=== PATIENT | male | born 1925 | race Two or more races ===

== ENCOUNTER 2016-08-06 03:08 | Inpatient (IN) | payer MEDICARE, BC ==
[2016-08-06] VITALS (8 sets, daily range): BP systolic 76–115; BP diastolic 48–62
[~2016-08-06] VITALS: Ht 177.8 cm; Wt 68.0 kg
--- NOTE | 2016-08-06 03:34 | Emergency Room Report ---
History of Present Illness General Chief Complaint: General Complaint Source: Patient, Medical Record, EMS Present Illness HPI Is an 89-year-old male with a history of arrhythmia, status post AICD placement in June at [facility]. He was done because he had a syncopal episode. He is very hard of hearing and is a poor historian. Patient presents with AICD firing the last 2 days. Had one episode yesterday and 4 times tonight. He's been complaining of feeling flushed and hot. Denies any fever chills denies any chest pain. [place] like electrical shocks in his left chest. Denies any other complaint. No fever or chills but no nausea no vomiting. No symptoms right now. Allergies: Coded Allergies: No Known Allergies (Unverified , 08/06/16) Patient History Past Medical History: see triage record, old chart reviewed, HTN, arrhyth Past Surgical History: pacemaker, other Pertinent Family History: none Social History: Denies: smoking Immunizations: other Reviewed Nursing Documentation: PMH: Agreed, PSxH: Agreed Nursing Documentation-PMH Hx Hypertension: Yes Hx Pacemaker: Yes Hx Cancer: Yes Review of Systems Eye: Denies: blurred vision, eye pain ENT: Denies: ear pain, nose congestion, throat swelling Respiratory: Denies: cough, shortness of breath Cardiovascular: Denies: chest pain, palpitations Gastrointestinal: Denies: abdominal pain, diarrhea, nausea, vomiting Musculoskeletal: Denies: back pain, joint pain Skin: Denies: rash Neurological: Denies: headache, numbness Endocrine: Denies: increased thirst, increased urine Hematologic/Lymphatic: Denies: easy bruising All Other Systems: negative except mentioned in HPI Physical Exam Vital Signs Date Time Temp Pulse Resp B/P Pulse Ox O2 Delivery O2 Flow Rate FiO2 08/06/16 03:17 97.2 80 15 99/63 100 Room Air vitals unremarkable Sp02 EP Interpretation: reviewed, normal General Appearance: well appearing, no apparent distress, alert Head: normocephalic, atraumatic Eyes: bilateral eye EOMI, bilateral eye PERRL ENT: hearing grossly normal, normal pharynx Neck: full range of motion, supple, no meningismus Respiratory: chest non-tender, lungs clear, normal breath sounds Cardiovascular #1: regular rate, rhythm, no murmur Gastrointestinal: normal bowel sounds, non tender, no mass, no organomegaly, no bruit, non-distended Musculoskeletal: back normal, gait/station normal, normal range of motion Psychiatric: mood/affect normal Skin: warm/dry Medical Decision Making Diagnostic Impression: Primary Impression: AICD discharge Additional Impressions: NSTEMI, initial episode of care Arrhythmia Qualified Codes: I49.9 - Cardiac arrhythmia, unspecified Elevated brain natriuretic peptide (BNP) level Thrombocytopenia Chronic kidney disease (CKD) Qualified Codes: 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 He probably has V. fib/V. tach. AICD is working. No evidence of malfunction or wire fracture. No evidence of PE, dissection, pneumonia to name a few. Is elevated troponin may be secondary to cardiac damage secondary to AICD firing. Could also be secondary to cardiac event. He did say that his baseline creatinine is around 5. he has no evidence of fluid overloaded on chest x-ray or clinical exam. Patient will be admission versus transfer for interrogation. Laboratory Tests Test 08/06/16 03:20 White Blood Count 6.0 K/UL (4.8-10.8) Red Blood Count 4.13 M/UL (4.70-6.10) L Hemoglobin 13.4 G/DL (14.2-18.0) L Hematocrit 41.7 % (42.0-52.0) L Mean Corpuscular Volume 101 FL (80-99) H Mean Corpuscular Hemoglobin 32.5 PG (27.0-31.0) H Mean Corpuscular Hemoglobin Concent 32.2 G/DL (32.0-36.0) Red Cell Distribution Width 14.2 % (11.6-14.8) Platelet Count 108 K/UL (150-450) L Mean Platelet Volume 7.1 FL (6.5-10.1) Neutrophils (%) (Auto) 66.9 % (45.0-75.0) Lymphocytes (%) (Auto) 22.9 % (20.0-45.0) Monocytes (%) (Auto) 9.3 % (1.0-10.0) Eosinophils (%) (Auto) 0.2 % (0.0-3.0) Basophils (%) (Auto) 0.7 % (0.0-2.0) Prothrombin Time 11.1 SEC (9.30-11.50) Prothromb Time International Ratio 1.1 (0.9-1.1) Activated Partial Thromboplast Time 23 SEC (23-33) Sodium Level 138 mEQ/L (135-145) Potassium Level 3.5 mEQ/L (3.4-4.9) Chloride Level 91 mEQ/L (98-107) L Carbon Dioxide Level 31 mEQ/L (20-30) H Anion Gap 16 (5-15) H Blood Urea Nitrogen 70 mg/dL (7-23) H Creatinine 4.7 mg/dL (0.7-1.2) H Estimat Glomerular Filtration Rate mL/min (>60) Glucose Level 99 mg/dL (74-106) Calcium Level 9.9 mg/dL (8.6-10.2) Total Bilirubin 0.6 mg/dL (0.0-1.2) Aspartate Amino Transf (AST/SGOT) 184 U/L (5-40) H Alanine Aminotransferase (ALT/SGPT) 110 U/L (3-41) H Alkaline Phosphatase 49 U/L (40-129) Total Creatine Kinase 276 U/L (38-174) H Creatine Kinase MB 5.5 ng/mL (< 6.7) Creatine Kinase MB Relative Index 1.9 Troponin I 0.33 ng/mL (<=0.30) *H Pro-B-Type Natriuretic Peptide 28904 pg/mL (0-450) H Total Protein 5.8 g/dL (6.6-8.7) L Albumin 3.3 g/dL (3.5-5.2) L Globulin 2.5 g/dL Albumin/Globulin Ratio 1.3 (1.0-2.7) Lab Results Impression labs with elevated troponin, BNP EKG Diagnostic Results Rate: normal Rhythm: NSR, other - Paced ST Segments: no acute changes Rhythm Strip Diag. Results EP Interpretation: yes Rate: 80 Rhythm: NSR, no PVC's, no ectopy Chest X-Ray Diagnostic Results EP Interpretation: Yes Findings: no consolidation, no effusion, no pneumothorax, no acute cardiopulmonary disease, other - Cardiomegaly Number of Views: 1 Last Vital Signs Date Time Temp Pulse Resp B/P Pulse Ox O2 Delivery O2 Flow Rate FiO2 08/06/16 03:17 97.2 80 15 99/63 100 Room Air Status: improved Disposition: ADMITTED INPATIENT Condition: Serious VIRGINIA GILMORE M.D. Aug 06, 2016 03:34
[2016-08-06] MEDS ORDERED: VITAMIN B COMP1 EAC2 ORAL (03:37)
[2016-08-06] MEDS ORDERED: CALCIUM 1,0001 EAC1 PO (03:37)
[2016-08-06] MEDS ORDERED: TRIGLIDE160 MG PO (03:37)
[2016-08-06] MEDS ORDERED: ZETIA10 MG ORAL (03:37)
[2016-08-06] MEDS ORDERED: PACERONE200 MG ORAL (03:37)
[2016-08-06] MEDS ORDERED: ASPIRIN81 MG ORAL (03:37)
[2016-08-06] MEDS ORDERED: CALCITRIOL0.25 MCG PO (03:37)
[2016-08-06] MEDS ORDERED: CRESTOR40 MG ORAL (03:37)
[2016-08-06] MEDS ORDERED: POTASSIUM CHLO20 ME2 ORAL (03:37)
[2016-08-06] MEDS ORDERED: FLONASE ALLERG9.9 ML NS (03:37)
[2016-08-06] MEDS ORDERED: FUROSEMIDE40 MG ORAL (03:37)
[2016-08-06] MEDS ORDERED: METOLAZONE2.5 MG PO (03:37)
[2016-08-06 03:48] LABS: BASOPHILS % (AUTO) 0.7 % (0.0-2.0); EOSINOPHILS % (AUTO) 0.2 % (0.0-3.0); LYMPHOCYTES % (AUTO) 22.9 % (20.0-45.0); MEAN CORPUSCULAR HEMOGLOBIN 32.5 PG (27.0-31.0); MEAN CORPUSCULAR HGB CONC 32.2 G/DL (32.0-36.0); MEAN CORPUSCULAR VOLUME 101 FL (80-99); MEAN PLATELET VOLUME 7.1 FL (6.5-10.1); MONOCYTES % (AUTO) 9.3 % (1.0-10.0); NEUTROPHILS % (AUTO) 66.9 % (45.0-75.0); PLATELET COUNT 108 K/UL (150-450); RED BLOOD COUNT 4.13 M/UL (4.70-6.10); RED CELL DISTRIBUTION WIDTH 14.2 % (11.6-14.8)
[2016-08-06 04:01] LABS: INR 1.1 (0.9-1.1); PROTHROMBIN TIME 11.1 SEC (9.30-11.50)
[2016-08-06 04:06] LABS: ALANINE AMINOTRANSFERASE 110 U/L (3-41); ALBUMIN/GLOBULIN RATIO 1.3 (1.0-2.7); ANION GAP 16 (5-15); ASPARTATE AMINO TRANSFERASE 184 U/L (5-40); CALCIUM 9.9 mg/dL (8.6-10.2); CARBON DIOXIDE 31 mEQ/L (20-30); CHLORIDE 91 mEQ/L (98-107); CREATININE 4.7 mg/dL (0.7-1.2); HEMOLYSIS 11; POTASSIUM 3.5 mEQ/L (3.4-4.9); SODIUM 138 mEQ/L (135-145); TOTAL PROTEIN 5.8 g/dL (6.6-8.7)
[2016-08-06 04:19] LABS: CKMB 5.5 ng/mL (< 6.7)
[2016-08-06 04:26] LABS: TROPONIN I 0.33 ng/mL (<=0.30)
[2016-08-06] MEDS ORDERED: Aspirin Baby 81mg ORAL ONE (06:15)
[2016-08-06] MEDS ORDERED: Enoxaparin 80mg Inj SUBQ ONE (06:15)
[2016-08-06] MEDS ORDERED: Calcitriol 0.25mcg Cap ORAL ONE (11:00)
[2016-08-06] MEDS ORDERED: METOLAZONE 2.5 MG ORAL SCH (11:00)
[2016-08-06] MEDS ORDERED: Furosemide 40mg tab ORAL SCH (11:00)
--- NOTE | 2016-08-06 11:07 | Diagnostic Imaging Report ---
Indication: Chest Pain Comparison: None A single view chest radiograph was obtained. Findings: No definite infiltrate or pulmonary vascular congestion identified. Sternotomy and pacemaker are noted. The heart is enlarged. The aorta is mildly enlarged consistent with atherosclerotic vascular disease. The bones are osteopenic. Impression: No acute disease
[2016-08-06] MEDS: Aspirin EC 81mg tab ORAL SCH (12:11)
[2016-08-06] MEDS: Atorvastatin 80mg tab ORAL SCH (12:13)
[2016-08-06] MEDS: Heparin 5000 units/ml inj SUBQ SCH ×2 (12:14→21:00)
[2016-08-06] MEDS: Amiodarone 200mg tab ORAL SCH ×2 (13:35→21:06)
[2016-08-06] MEDS: Calcium Carbonate 500mg w/Vit D 200iu tab ORAL SCH (13:36)
[2016-08-06] MEDS: Flonase Nasal Inhaler 16gm NASAL SCH (13:36)
--- NOTE | 2016-08-06 20:58 | History and Physical Report ---
DATE OF ADMISSION: 08/06/2016 REASON FOR ADMISSION: Defibrillator firing off and elevated troponin. HISTORY OF PRESENT ILLNESS: The patient is an 89-year-old male with history of dysrhythmia and history of AICD placement in June. The patient had a syncopal episode. The patient is a poor historian. Apparently, his AICD has been fired off over the past two days. The patient notes that it was fired off approximately four times last night. The patient is feeling unwell. He denies any fevers of chills. Denies any falls. Denies any head trauma. He has noted the shock like feeling in left chest. The patient was brought in for evaluation. In the emergency room, the patient was noted to have an elevated troponin and now be admitted for further care and management and further intervention. PAST MEDICAL HISTORY: Notable for dysrhythmia, AICD, chronic kidney disease, hypercholesterolemia, possible coronary artery disease, and possible congestive heart failure. MEDICATIONS: Reviewed. ALLERGIES: Reviewed. SOCIAL HISTORY: The patient is currently nonsmoker and nondrinker. The patient is retired and unemployed and lives independently. FAMILY HISTORY: Otherwise noncontributory. REVIEW OF SYSTEMS: All 10 points reviewed. Otherwise negative with the exception of the above. PHYSICAL EXAMINATION: GENERAL: The patient is a well-developed male, comfortable of advanced age. VITAL SIGNS: Temperature 97.5 degrees, pulse 80, respiratory rate 14, blood pressure 96/49, and saturation 99% on room air. HEENT: Fairly negative. Extraocular movements are grossly intact. Oropharynx is moist. NECK: Supple. No jugular venous distention. LUNGS: Fairly clear. Symmetric. CARDIAC: Normal S1 and S2. Fairly regular. Noted murmur, which is soft. No rubs or gallops. AICD noted in the chest wall. ABDOMEN: Soft and nontender. No hepatosplenomegaly. EXTREMITIES: No cyanosis or clubbing. No edema. NEUROLOGIC: Grossly nonfocal. Hard of hearing. Slightly confused. LABORATORY AND DIAGNOSTIC DATA: White count 6, hematocrit 41.7, and platelets 108,000. Chemistry, BUN 70 and creatinine 4.7. Liver enzymes are elevated. BNP 45753. Troponin 0.33. IMPRESSION: 1. Automatic implantable cardioverter-defibrillator with firing possible ventricular dysrhythmia. 2. Evidence of chronic renal failure. 3. Evidence of transaminitis of unclear etiology possibly due to statin use. 4. Elevated natriuretic peptide . 5. Elevated troponin possible non-ST elevation myocardial infarction 6. Elevated hypocholesterolemia possible coronary artery disease. 7. Evidence of mild protein-calorie malnutrition . 8. Advanced age. 9. Reduced hearing. RECOMMENDATIONS: Supportive care. Resume home medications. Serial troponins. Folow up EGD. Cardiology evaluation to follow. Monitor on telemetry and consider electrophysiological evaluation. The patient apparently with chronic renal impairment, which is near baseline at present. We will discharge the patient when stable and likely provide home health. Rowdy Royal M.D. DR: Camacho JOB#: [id number] CC: BRITTANI
[2016-08-06 21:27] LABS: TROPONIN I 0.36 ng/mL (<=0.30)
[2016-08-07] VITALS (40 sets, daily range): BP systolic 58–121; BP diastolic 21–65
[2016-08-07 01:16] LABS: TROPONIN I 0.39 ng/mL (<=0.30)
--- NOTE | 2016-08-07 01:58 | Consultation ---
DATE OF CONSULTATION: 08/06/2016 REQUESTING PHYSICIAN: Rowdy Royal M.D. REASON FOR CONSULTATION: Defibrillator discharge. HISTORY OF PRESENT ILLNESS: This is an 89-year-old male with an ischemic cardiomyopathy and [employer] cardiac defibrillator suffered a syncopal episode, which was associated with several shocks from his defibrillator, he states 4 times. He had another episode the night before last as well, but no prior episodes. The defibrillator was implanted in June 2015. The patient has not had any chest pain. He denies any other symptoms. His troponin level in the emergency room was 0.33. PAST MEDICAL HISTORY: 1. Hyperlipidemia. 2. Coronary artery disease. 3. Congestive heart failure. 4. Cardiomyopathy. 5. Paroxysmal ventricular arrhythmias. 6. Chronic kidney disease. MEDICATIONS: Reviewed. ALLERGIES: None. SOCIAL HISTORY: Negative for smoking or alcohol use. REVIEW OF SYSTEMS: No fevers. No cough. No history of blood clotting. No history of diabetes or thyroid disorder. No history of seizures or strokes. PHYSICAL EXAMINATION: GENERAL: Elderly male appears in his age, in no acute distress. VITAL SIGNS: Afebrile, blood pressure 76/54, respiratory rate 81, and respiratory rate 15. HEENT: Temporal wasting. Pale conjunctivae. Oropharynx clear. NECK: Supple. LUNGS: Clear. CARDIAC: Regular rhythm and rate. Normal S1, paradoxically split S2, 1/6 systolic apical murmur. ABDOMEN: Soft. EXTREMITIES: No edema. ICD pocket site clean and dry. LABORATORY AND DIAGNOSTIC STUDIES: EKG reveals a paced rhythm. White count 6 and hemoglobin 13.4. BUN ___, creatinine 4.7, sodium 138, potassium 3.5, chloride 91, and bicarbonate 31. CK-MB is negative. Pro-natriuretic peptide 22,000. IMPRESSION: 1. Cardiac defibrillator discharge, possible malignant arrhythmia versus inappropriate discharge. 2. Dilated cardiomyopathy. 3. Acute on chronic kidney injury. 4. Hypotension, likely chronic, but exacerbated at this time due to hypovolemia and prerenal state. 5. Acute myocardial ischemia and possible infarction, likely due to defibrillator discharge. PLAN: 1. Cardiac monitoring. 2. Volume support by IV route. 3. parameters for anti-failure regimen. 4. Defibrillator interrogation is being arranged. I have contacted the [facility] [facility] provider service representative. 5. Serial troponin levels. Antiplatelet therapy. 6. Hold diuretic. 7. Continue amiodarone for antiarrhythmic benefits. 8. The patient's primary customer success director is will be contacted tomorrow to expand database. Roger Interiano M.D. DR: RONALD JOB#: [id number] CC:
[2016-08-07] MEDS ORDERED: Amiodarone 150mg/ml 3ml Amp ONE (03:59)
[2016-08-07] MEDS ORDERED: Amiodarone 900 MG in D5W 500ml 482 ML IV SCH (06:00)
[2016-08-07 06:22] LABS: MEAN CORPUSCULAR HEMOGLOBIN 32.2 PG (27.0-31.0); MEAN CORPUSCULAR HGB CONC 31.9 G/DL (32.0-36.0); MEAN CORPUSCULAR VOLUME 101 FL (80-99); MEAN PLATELET VOLUME 7.6 FL (6.5-10.1); PLATELET COUNT 93 K/UL (150-450); RED BLOOD COUNT 3.71 M/UL (4.70-6.10); RED CELL DISTRIBUTION WIDTH 14.2 % (11.6-14.8); WHITE BLOOD COUNT 5.7 K/UL (4.8-10.8)
[2016-08-07] MEDS: Amiodarone 900 MG in D5W 500ml 482 ML IV SCH (06:30)
[2016-08-07 07:03] LABS: CKMB 5.5 ng/mL (< 6.7)
[2016-08-07 07:06] LABS: ALANINE AMINOTRANSFERASE 93 U/L (3-41); ALBUMIN/GLOBULIN RATIO 1.3 (1.0-2.7); ANION GAP 17 (5-15); ASPARTATE AMINO TRANSFERASE 145 U/L (5-40); CALCIUM 9.4 mg/dL (8.6-10.2); CARBON DIOXIDE 29 mEQ/L (20-30); CHLORIDE 95 mEQ/L (98-107); HEMOLYSIS 10; POTASSIUM 3.7 mEQ/L (3.4-4.9); SODIUM 141 mEQ/L (135-145); TOTAL PROTEIN 5.3 g/dL (6.6-8.7)
[2016-08-07 07:30] LABS: MAGNESIUM 1.6 mg/dL (1.7-2.5); PHOSPHORUS 3.5 mg/dL (2.5-4.8)
[2016-08-07 07:32] LABS: TROPONIN I 0.33 ng/mL (<=0.30)
--- NOTE | 2016-08-07 08:15 | Critical Care Progress Note ---
Assessment/Plan Assessment/Plan IMPRESSION: 1. Automatic implantable cardioverter-defibrillator with firing possible ventricular dysrhythmia. 2. Evidence of acute on chronic renal failure. 3. Evidence of transaminitis of unclear etiology possibly due to statin use. 4. Elevated natriuretic peptide . 5. Elevated troponin possible non-ST elevation myocardial infarction 6. Elevated hypocholesterolemia possible coronary artery disease. 7. Evidence of mild protein-calorie malnutrition . 8. Advanced age. 9. Reduced hearing. PLAN await evaluation of AICD monitor in ICU on amio renal evaluation monitor function ? iv hydration follow up CMP and liver enzymes impression, plan, and exam edited and reviewed in detail care discussed with physical therapy manager - Subjective Interval Events: transferred to ICU for VT d/w cards appreciate care Condition: critical I&O: Intake and Output 08/06/16 08/07/16 19:00 07:00 Intake Total 33.33 ml Output Total 200 ml 450 ml Balance -200 ml -416.67 ml Intake IV Total 33.33 ml Output Urine Total 200 ml 450 ml # Voids 1 3 Critical Care - Objective Last 24 Hour Vital Signs Date Time Temp Pulse Resp B/P Pulse Ox O2 Delivery O2 Flow Rate FiO2 08/07/16 07:00 114 15 80/57 100 Room Air 08/07/16 06:00 103 15 93/39 100 Room Air 08/07/16 05:00 108 15 93/50 100 Room Air 08/07/16 04:00 111 16 121/27 99 Room Air 08/07/16 03:08 80 08/07/16 03:00 97.9 81 16 116/53 100 Room Air 08/07/16 02:30 77/49 08/07/16 02:00 75/48 08/07/16 01:30 76/44 08/07/16 01:00 78/48 08/07/16 00:30 76/50 08/07/16 00:00 96.4 82 18 77/49 98 Nasal Cannula 2.0 08/06/16 20:00 89 08/06/16 17:42 80 18 89/60 99 Room Air 08/06/16 16:24 98.0 98 18 115/62 100 Nasal Cannula 2.0 08/06/16 16:11 98.0 98 18 115/62 100 Nasal Cannula 2.0 08/06/16 15:15 98.0 81 15 76/54 100 Nasal Cannula 1.0 08/06/16 13:00 80 13 90/48 97 Room Air 08/06/16 10:30 82 15 91/48 97 Room Air Labs: GENERAL: The patient is a well-developed male, comfortable of advanced age. HEENT: Fairly negative. Extraocular movements are grossly intact. Oropharynx is moist. NECK: Supple. No jugular venous distention. LUNGS: Fairly clear. Symmetric. CARDIAC: Normal S1 and S2. Fairly regular. Noted murmur, which is soft. No rubs or gallops. AICD noted in the chest wall. ABDOMEN: Soft and nontender. No hepatosplenomegaly. EXTREMITIES: No cyanosis or clubbing. No edema. NEUROLOGIC: Grossly nonfocal. Hard of hearing. Slightly confused. JUSTUS TANG Aug 07, 2016 08:15
[2016-08-07] MEDS: Atorvastatin 80mg tab ORAL SCH (09:47)
[2016-08-07] MEDS: Aspirin EC 81mg tab ORAL SCH (09:47)
[2016-08-07] MEDS: Calcium Carbonate 500mg w/Vit D 200iu tab ORAL SCH (09:47)
[2016-08-07] MEDS: Heparin 5000 units/ml inj SUBQ SCH ×2 (09:51→21:14)
[2016-08-07 10:12] LABS: ANISOCYTOSIS 1+; BAND NEUTROPHILS % (MANUAL) 0 % (0-8); BASOPHILS % (MANUAL) 0 % (0-2); EOSINOPHILS % (MANUAL) 0 % (0-3); HYPOCHROMASIA 1+; LYMPHOCYTES % (MANUAL) 18 % (20-45); MACROCYTES 1+; NEUTROPHILS % (MANUAL) 74 % (45-75); PLATELET ESTIMATE DECREASED; PLATELET MORPHOLOGY NORMAL; TOTAL CELLS COUNTED 100
--- NOTE | 2016-08-07 11:46 | Wound Care Consultation ---
Wound Assessment Wound Assessment #1: Wound Number: #1 Wound Present on Admission: Yes New Wound: No Status Change of Wound: No Wound Location Body Site Modif: mid Wound Location Body Site: sacral Wound Type: pressure ulcer Tiffanie Test: Does not Tiffanie Pressure Ulcer Stage: deep tissue injury Wound Thickness: Full Thickness Wound Length: 2.0 Wound Width: 2.0 Wound Depth: utd Percent of Wound Purple/Maroon: 100 Wound Drainage Amount: None Wound Drainage Odor: None/Absent Tissue Surrounding Wound: Erythemic Wound General Appearance: Reddened - intact,maroon Wound Assessment #2: Wound Number: #2 Wound Present on Admission: Yes New Wound: No Status Change of Wound: No Wound Location Body Site Modif: left, upper Wound Location Body Site: arm Wound Type: other - scattered ruptured ecchymosis. Tiffanie Test: Does not Tiffanie Wound Thickness: Partial Thickness Percent of Wound [place]ese/Red: 50 Percent of Wound Purple/Maroon: 50 Wound Drainage Description: Serosanguineous Wound Drainage Amount: Scant Wound Drainage Odor: None/Absent Tissue Surrounding Wound: Erythemic Wound General Appearance: Reddened Wound Assessment #3: Wound Number: #3 Wound Present on Admission: Yes New Wound: No Status Change of Wound: No Wound Location Body Site Modif: right, upper Wound Location Body Site: arm Wound Type: other - scattered dark maroon ecchymosis Tiffanie Test: Does not Tiffanie Percent of Wound Purple/Maroon: 100 Wound Drainage Amount: None Wound Drainage Odor: None/Absent Tissue Surrounding Wound: Intact Wound General Appearance: Reddened Wound Assessment #4: Wound Number: #4 Wound Present on Admission: Yes New Wound: No Status Change of Wound: No Wound Location Body Site: leg - right and left lower legs Wound Type: scab - scattered scabs, dry scaly skin Tiffanie Test: Does not Tiffanie Wound Drainage Amount: None Wound Drainage Odor: None/Absent Tissue Surrounding Wound: Intact Wound General Appearance: Open to air, Clean/Dry Wound Comment #1 Mid Sacral pressure ulcer Deep Tissue injury. #2 Left upper extremity scattered ruptured ecchymosis and intact ecchymosis. #3 Right upper extremity scattered ecchymosis. #4 Left and Right lower extremities scattered dry scabs and dry skin. Recommendation -Apply low air loss mattress. -Local wound care as ordered. -Optimize nutrition. -Keep clean and dry. -Turn and reposition. -Offload affected sacral. -Offload heels and feet. -Assess and notify MD for any changes of condition. JOLLY NAZARIO Aug 07, 2016 11:46
[2016-08-07] MEDS: Flonase Nasal Inhaler 16gm NASAL SCH (14:36)
--- NOTE | 2016-08-07 15:27 | Consultation ---
Consult Note Consult Note asked to evaluate at the request of Dr Cruz for renal failure- Is an 89-year-old male with a history of arrhythmia, status post AICD placement in June at [facility]. He was done because he had a syncopal episode. He is very hard of hearing and is a poor historian. Patient presents with AICD firing the last 2 days. Had one episode yesterday and 4 times tonight. He's been complaining of feeling flushed and hot. Denies any fever chills denies any chest pain. [place] like electrical shocks in his left chest. Denies any other complaint. No fever or chills but no nausea no vomiting. No symptoms right now. Patient hard hearing- poor historian- examined- data reviewed . Assessment/Plan Renal Imp: Has h/o CKD - presents with Cr 4.7 now up to 5 Etiologies , multifactoria, mainly: Heart disease and cardiomyopathy leading to low renal perfusion and OR related to drugs: Lasix , Zaroxyllin, Reason for admit: Cardiac disease, Malignant arrhythmia leading to defibrillator discharge Dilated cardiomyopathy Hypotension Acute cardiac ischemia due to defibrillator discharge, with abnormal Troponin I Plan: Urinalysis- Gastric support- Kidney JOSE and Echo monitor renal parameters- TETE CABRERA Aug 07, 2016 15:27
[2016-08-07 17:41] LABS: TROPONIN I < 0.30 ng/mL (<=0.30)
[2016-08-07 20:53] LABS: APPEARANCE,URINE CLEAR; KETONES,URINE NEGATIVE (NEGATIVE); LEUKOCYTE ESTERASE ,URINE NEGATIVE (NEGATIVE); NITRITE,URINE NEGATIVE (NEGATIVE); PH,URINE 5 (4.5-8.0); PROTEIN,URINE NEGATIVE (NEGATIVE); UROBILINOGEN,URINE NORMAL MG/DL (0.0-1.0)
[2016-08-07 21:03] LABS: BACTERIA,URINE MODERATE /HPF
[2016-08-07 21:04] LABS: AMORPHOUS SEDIMENT,UR FEW /LPF
[2016-08-07] MEDS: Vitamin A&D Oint 2oz Tube TOPIC SCH (21:15)
[2016-08-08] VITALS (26 sets, daily range): BP systolic 82–115; BP diastolic 16–60
[2016-08-08] MEDS: Amiodarone 900 MG in D5W 500ml 482 ML IV SCH (04:54)
[2016-08-08 06:25] LABS: MEAN CORPUSCULAR HEMOGLOBIN 32.4 PG (27.0-31.0); MEAN CORPUSCULAR HGB CONC 32.2 G/DL (32.0-36.0); MEAN CORPUSCULAR VOLUME 100 FL (80-99); MEAN PLATELET VOLUME 7.4 FL (6.5-10.1); PLATELET COUNT 89 K/UL (150-450); RED BLOOD COUNT 3.39 M/UL (4.70-6.10); RED CELL DISTRIBUTION WIDTH 14.3 % (11.6-14.8); WHITE BLOOD COUNT 4.2 K/UL (4.8-10.8)
[2016-08-08] MEDS ORDERED: Amiodarone 900 MG in D5W 500ml 482 ML IV SCH (06:30)
--- NOTE | 2016-08-08 06:38 | Consultation ---
History of Present Illness General Date patient seen: Aug 08, 2016 Chief Complaint: asked to evaluate pt for ICD shocks - VT Referring physician: Dr Interiano Reason for Consultation: ICD shocks Present Illness HPI Mr. Merchant is an 89 yo wm w/ CAD, remote hx MIs, CABG x4 in 1997, ischemic cm, CHF w/ EF < 20%. He was adm to [facility] w/ monomorphic VT in 06/22/16. At that time, amiodarone was started and a bivent icd was placed (06/24). He was dc d home on . He was readm 08/05 w/ recurrent icd shocks (7). ICD interrogation has revealed sustained VT rates 140s, as well as slower VTs. Some episodes are terminated w/ ATP. He was adm to ICU and started on iv amiodarone. EP eval was requested. Allergies: Coded Allergies: No Known Allergies (Unverified , 08/06/16) Medication History Scheduled Amiodarone Hcl* (Pacerone*), 200 MG ORAL EVERY 12 HOURS, (Reported) Aspirin* (Aspirin*), 81 MG ORAL DAILY, (Reported) Calcitriol (Calcitriol), 0.25 MCG PO DAILY, (Reported) Ezetimibe (Zetia*), 10 MG ORAL DAILY, (Reported) Fenofibrate Nanocrystallized (Triglide), 160 MG PO DAILY, (Reported) Fluticasone Propionate (Flonase Allergy Relief), 9.9 ML NS DAILY, (Reported) Furosemide* (Lasix*), 40 MG ORAL DAILY, (Reported) Metolazone (Metolazone), 2.5 MG PO DAILY, (Reported) Potassium Chloride (Potassium Chloride), 20 MEQ ORAL DAILY, (Reported) Rosuvastatin Calcium* (Crestor*), 40 MG ORAL DAILY, (Reported) Vitamin B Complex (Vitamin B Complex), 1 CAP ORAL DAILY, (Reported) Miscellaneous Medications Calcium Carbonate/Vitamin D3 (Calcium 1,000 + D3 Caplet), 1 EACH PO, (Reported) Patient History Healthcare decision maker Resuscitation status Chemical (Meds Only) Advanced Directive on File Past Medical/Surgical History Past Medical/Surgical History: (1) CKD (chronic kidney disease) (2) CAD (coronary artery disease) (3) Chronic kidney disease (CKD) (4) Arrhythmia (5) AICD discharge (6) CHF (congestive heart failure) Review of Systems ROS Narrative as per HPI Physical Exam General Appearance: WD/WN, no apparent distress, alert Lines, tubes and drains: peripheral HEENT: atraumatic, PERRL Neck: supple Respiratory/Chest: other - bilat rhonchi at bases Cardiovascular/Chest: normal rate, regular rhythm, no JVD, other - ii/vi HSM at apex rad to axilla Abdomen: non tender, soft, no mass Extremities: non-tender, no edema Skin Exam: other - ecchymosis over upper ext, L chest Neurologic: alert, oriented x 3 Last 24 Hour Vital Signs Date Time Temp Pulse Resp B/P Pulse Ox O2 Delivery O2 Flow Rate FiO2 08/08/16 06:00 70 13 92/35 96 Room Air 08/08/16 05:00 70 15 82/46 95 Room Air 08/08/16 04:00 70 08/08/16 04:00 95.0 70 15 88/16 99 Room Air 08/08/16 03:00 71 15 112/40 97 Room Air 08/08/16 02:00 70 13 88/43 97 Room Air 08/08/16 01:00 74 10 115/46 96 Room Air 08/08/16 00:00 71 08/08/16 00:00 94.5 71 15 104/38 100 Room Air 08/07/16 23:00 72 14 89/49 98 Room Air 08/07/16 22:00 70 12 95/65 99 Room Air 08/07/16 21:00 71 14 88/59 99 Room Air 08/07/16 20:00 71 08/07/16 20:00 71 15 84/50 100 Room Air 08/07/16 19:00 95.0 71 12 81/48 98 Room Air 08/07/16 18:30 72 18 80/40 99 Room Air 08/07/16 18:00 70 19 83/42 98 Room Air 08/07/16 17:30 70 19 81/43 99 Room Air 08/07/16 17:00 71 18 82/42 99 Room Air 08/07/16 16:30 70 19 80/40 98 Room Air 08/07/16 16:00 70 08/07/16 16:00 98.0 70 19 71/43 98 Room Air 08/07/16 15:32 70 19 72/26 99 Room Air 08/07/16 15:08 72 18 75/25 98 Room Air 08/07/16 14:30 72 18 78/27 98 Room Air 08/07/16 14:00 70 18 75/26 98 Room Air 08/07/16 13:30 72 18 66/27 98 Room Air 08/07/16 13:00 72 18 68/26 98 Room Air 08/07/16 12:30 70 18 72/25 98 Room Air 08/07/16 12:00 98.0 72 18 79/26 98 Room Air 08/07/16 12:00 83 08/07/16 11:30 73 17 75/28 96 Room Air 08/07/16 11:00 71 18 79/26 97 Room Air 08/07/16 10:30 72 16 78/25 98 Room Air 08/07/16 10:00 70 16 87/24 100 Room Air 08/07/16 09:30 78 16 82/22 100 Room Air 08/07/16 09:00 112 16 81/22 99 Room Air 08/07/16 08:30 115 16 79/21 98 Room Air 08/07/16 08:00 98.0 98 15 58/44 99 Room Air 08/07/16 08:00 110 08/07/16 07:30 130 16 68/45 97 Room Air 08/07/16 07:00 114 15 80/57 100 Room Air Intake and Output 08/07/16 08/08/16 19:00 07:00 Intake Total 1691.91 ml 302.6 ml Output Total 160 ml 500 ml Balance 1531.91 ml -197.4 ml Intake Oral 360 ml 120 ml IV Total 1331.91 ml 182.6 ml Output Urine Total 160 ml 500 ml # Voids 3 Laboratory Tests Test 08/07/16 17:00 08/07/16 20:20 08/08/16 04:30 Troponin I < 0.30 ng/mL (<=0.30) Urine Color Pale yellow Urine Appearance Clear Urine pH 5 (4.5-8.0) Urine Specific [place] 1.010 (1.005-1.035) Urine Protein Negative (NEGATIVE) Urine Glucose (UA) Negative (NEGATIVE) Urine Ketones Negative (NEGATIVE) Urine Occult Blood 3+ (NEGATIVE) H Urine Nitrite Negative (NEGATIVE) Urine Bilirubin Negative (NEGATIVE) Urine Urobilinogen Normal MG/DL (0.0-1.0) Urine Leukocyte Esterase Negative (NEGATIVE) Urine RBC 5-10 /HPF (0 - 0) H Urine WBC 2-4 /HPF (0 - 0) Urine Squamous Epithelial Cells None /LPF (NONE/OCC) Urine Amorphous Sediment Few /LPF (NONE) H Urine Bacteria Moderate /HPF (NONE) H White Blood Count Pending Red Blood Count Pending Hemoglobin Pending Hematocrit Pending Mean Corpuscular Volume Pending Mean Corpuscular Hemoglobin Pending Mean Corpuscular Hemoglobin Concent Pending Red Cell Distribution Width Pending Platelet Count Pending Mean Platelet Volume Pending Neutrophils (%) (Auto) Pending Lymphocytes (%) (Auto) Pending Monocytes (%) (Auto) Pending Eosinophils (%) (Auto) Pending Basophils (%) (Auto) Pending Sodium Level Pending Potassium Level Pending Chloride Level Pending Carbon Dioxide Level Pending Blood Urea Nitrogen Pending Creatinine Pending Estimat Glomerular Filtration Rate Pending Glucose Level Pending Hemoglobin A1c Pending Uric Acid Pending Calcium Level Pending Phosphorus Level Pending Magnesium Level Pending Ferritin Pending Total Bilirubin Pending Gamma Glutamyl Transpeptidase Pending Aspartate Amino Transf (AST/SGOT) Pending Alanine Aminotransferase (ALT/SGPT) Pending Alkaline Phosphatase Pending Total Creatine Kinase Pending C-Reactive Protein, Quantitative Pending Pro-B-Type Natriuretic Peptide Pending Total Protein Pending Albumin Pending Globulin Pending Triglycerides Level Pending Cholesterol Level Pending LDL Cholesterol Pending HDL Cholesterol Pending Cholesterol/HDL Ratio Pending Vitamin B12 Level Pending Folate Pending Thyroid Stimulating Hormone (TSH) Pending Cortisol Pending Height (Feet): 5 Height (Inches): 10.00 Weight (Pounds): 150 Medications Current Medications Medications (Trade) Dose Ordered Sig/Renetta Route PRN Reason Start Time Stop Time Status Last Admin Dose Admin Amiodarone HCl/ Dextrose (Cordarone/D5W 500ml) 500 ml @ 0 mls/hr Q24H IV 08/08/16 06:30 08/09/16 06:29 UNV Aspirin (Ecotrin) 81 mg DAILY ORAL 08/06/16 11:00 09/05/16 10:59 08/07/16 09:47 Atorvastatin Calcium (Lipitor) 80 mg DAILY ORAL 08/06/16 11:00 09/05/16 10:59 08/07/16 09:47 Calcium Carbonate (OsCal D) 1 tab DAILY ORAL 08/06/16 11:00 09/05/16 10:59 08/07/16 09:47 EZETIMIBE (Zetia) 10 mg DAILY ORAL 08/06/16 11:00 09/05/16 10:59 08/07/16 09:48 Fenofibrate (Tricor) 145 mg DAILY ORAL 08/07/16 13:00 09/06/16 12:59 08/07/16 14:36 Fluticasone Propionate (Flonase) 1 spray DAILY NASAL 08/06/16 11:00 09/05/16 10:59 08/07/16 14:36 Heparin Sodium (Porcine) (Heparin 5000 units/ml) 5,000 units Q12HR SUBQ 08/06/16 10:00 09/05/16 09:59 08/07/16 21:14 Pantoprazole 40 mg 40 mg DAILY ORAL 08/07/16 16:00 09/06/16 15:59 08/07/16 16:56 Vitamin A/Vitamin D (A & D Oint) 1 applic EVERY 12 HOURS TOPIC 08/07/16 21:00 09/06/16 20:59 08/07/16 21:15 Vitamin B Complex (Vitamin B Complex) 1 ea DAILY ORAL 08/06/16 11:00 09/05/16 10:59 08/07/16 09:47 Assessment/Plan Status: stable, other - overall prognosis fair Status Narrative Mr. Merchant is an 89 yo wm w/ CAD, remote hx CABG x4, ischemic cm, CHF, CKD w Cr 5, s/p bivent icd 2/4 for VT who is adm w/ multiple shocks and ATP for VT. He is followed by Dr. Ballard. Has been started on po and now iv amiodarone in ICU. No VT overnight. Mg low and k normal on adm Assessment/Plan Would continue iv amiodarone today and transition to po. Consider addition of mexilitene if remains w/ VT episodes on amiodarone. Maintain K, Mg balance. No evidence AMI or other reversible metabolic cause for VT. KAROL MENDOZA Aug 08, 2016 06:38
[2016-08-08 06:59] LABS: HEMOGLOBIN A1C 5.2 % (< 6.0)
[2016-08-08 07:43] LABS: ALANINE AMINOTRANSFERASE 82 U/L (3-41); ALBUMIN/GLOBULIN RATIO 1.2 (1.0-2.7); ANION GAP 15 (5-15); ASPARTATE AMINO TRANSFERASE 122 U/L (5-40); CARBON DIOXIDE 28 mEQ/L (20-30); CHLORIDE 96 mEQ/L (98-107); CHOLESTEROL 97 mg/dL (< 200); CHOLESTEROL/HDL RATIO 3.1 (3.3-4.4); CREATININE 4.6 mg/dL (0.7-1.2); CRP QUANT < 0.3 mg/dL (< 0.5); HEMOLYSIS 7; LDL CHOLESTEROL (CALC.) 46 mg/dL (60-99); MAGNESIUM 1.6 mg/dL (1.7-2.5); POTASSIUM 3.4 mEQ/L (3.4-4.9); SODIUM 139 mEQ/L (135-145); TOTAL PROTEIN 4.9 g/dL (6.6-8.7); URIC ACID 6.8 mg/dL (3.0-7.5)
[2016-08-08 07:48] LABS: FERRITIN 1822 ng/mL (10-230)
[2016-08-08] MEDS: Aspirin EC 81mg tab ORAL SCH (08:23)
[2016-08-08] MEDS: Flonase Nasal Inhaler 16gm NASAL SCH (08:23)
[2016-08-08] MEDS: Calcium Carbonate 500mg w/Vit D 200iu tab ORAL SCH (08:24)
[2016-08-08] MEDS: Atorvastatin 80mg tab ORAL SCH (08:24)
[2016-08-08] MEDS: Vitamin A&D Oint 2oz Tube TOPIC SCH ×2 (08:25→20:48)
[2016-08-08] MEDS: Heparin 5000 units/ml inj SUBQ SCH ×2 (08:27→20:48)
--- NOTE | 2016-08-08 11:31 | Cardiology Report ---
APPROVED REPORT EKG Measurement Heart [id number] wide complex tachy
--- NOTE | 2016-08-08 11:58 | Cardiology Report ---
APPROVED REPORT EXAM: Two-dimensional and M-mode echocardiogram with Doppler and color Doppler. INDICATION Congestive Heart Failure M-Mode DIMENSIONS IVSd1.6 (0.7-1.1cm)Left Atrium (MM)3.9 (1.6-4.0cm) LVDd5.8 (3.5-5.6cm)Aortic Root3.1 (2.0-3.7cm) PWd1.7 (0.7-1.1cm)Aortic Cusp Exc.1.9 (1.5-2.0cm) LVDs5.1 (2.5-4.0cm) PWs1.7 cm Normal left ventricular chamber size. Global left ventricular hypokinesis. Apical dyskineis inferior wall akinetic thinned c/w scar other wall are sig hypokinetic , best motion noted in proximal lateral and anterior oliveira Left ventricular ejection fraction estimated to be 20-25 %. Moderate left ventricular hypertrophy. No evidence of pericardial fat or effusion. Right cardiac chamber sizes are within normal limits. Moderate left atrial enlargement by 2D. Focal aortic valve sclerosis with adequate cusp excursion Thickened mitral valve leaflets with normal excursion. Mild mitral annulus and aortic root calcification. Pulmonic valve is well visualized. Normal tricuspid valve structure. IVC is normal in size with physiologic collapse. Probable pacemaker wire present in the right side chambers. A color flow and spectral Doppler study was performed and revealed: Trace aortic regurgitation. Moderate mitral regurgitation. Mitral inflow velocities indicates possible pseudo normalization pattern implying significant left ventricular diastolic dysfunction. Trace tricuspid regurgitation. Tricuspid systolic velocities suggests peak right ventricular systolic pressure of 15 mmHg Pulmonic regurgitation present.
--- NOTE | 2016-08-08 12:35 | Critical Care Progress Note ---
Assessment/Plan Assessment/Plan IMPRESSION: 1. Automatic implantable cardioverter-defibrillator with firing possible ventricular dysrhythmia. 2. Evidence of acute on chronic renal failure. 3. Evidence of transaminitis of unclear etiology possibly due to statin use. 4. Elevated natriuretic peptide . 5. Elevated troponin possible non-ST elevation myocardial infarction 6. Elevated hypocholesterolemia possible coronary artery disease. 7. Evidence of mild protein-calorie malnutrition . 8. Advanced age. 9. Reduced hearing. PLAN await evaluation of AICD monitor in ICU on amio drip renal evaluation to follow up lab results monitor for worsening renal function monitor function transfer out of ICU per cardiology stabilize wound care impression, plan, and exam edited and reviewed in detail care discussed with BARKEEPER care time 35 minutes Critical Care - Subjective Interval Events: somewhat confused care noted and discussed renal appreciated Condition: critical I&O: Intake and Output 08/07/16 08/08/16 19:00 07:00 Intake Total 1691.91 ml 302.6 ml Output Total 160 ml 500 ml Balance 1531.91 ml -197.4 ml Intake Oral 360 ml 120 ml IV Total 1331.91 ml 182.6 ml Output Urine Total 160 ml 500 ml # Voids 3 Critical Care - Objective Last 24 Hour Vital Signs Date Time Temp Pulse Resp B/P Pulse Ox O2 Delivery O2 Flow Rate FiO2 08/08/16 12:06 72 08/08/16 10:00 72 16 82/34 97 Room Air 08/08/16 09:00 70 16 85/25 98 Room Air 08/08/16 08:00 96.5 71 15 86/26 98 Room Air 08/08/16 08:00 70 08/08/16 07:30 70 12 85/25 97 Room Air 08/08/16 06:00 70 13 92/35 96 Room Air 08/08/16 05:00 70 15 82/46 95 Room Air 08/08/16 04:00 70 08/08/16 04:00 95.0 70 15 88/16 99 Room Air 08/08/16 03:00 71 15 112/40 97 Room Air 08/08/16 02:00 70 13 88/43 97 Room Air 08/08/16 01:00 74 10 115/46 96 Room Air 08/08/16 00:00 71 08/08/16 00:00 94.5 71 15 104/38 100 Room Air 08/07/16 23:00 72 14 89/49 98 Room Air 08/07/16 22:00 70 12 95/65 99 Room Air 08/07/16 21:00 71 14 88/59 99 Room Air 08/07/16 20:00 71 08/07/16 20:00 71 15 84/50 100 Room Air 08/07/16 19:00 95.0 71 12 81/48 98 Room Air 08/07/16 18:30 72 18 80/40 99 Room Air 08/07/16 18:00 70 19 83/42 98 Room Air 08/07/16 17:30 70 19 81/43 99 Room Air 08/07/16 17:00 71 18 82/42 99 Room Air 08/07/16 16:30 70 19 80/40 98 Room Air 08/07/16 16:00 70 08/07/16 16:00 98.0 70 19 71/43 98 Room Air 08/07/16 15:32 70 19 72/26 99 Room Air 08/07/16 15:08 72 18 75/25 98 Room Air 08/07/16 14:30 72 18 78/27 98 Room Air 08/07/16 14:00 70 18 75/26 98 Room Air 08/07/16 13:30 72 18 66/27 98 Room Air 08/07/16 13:00 72 18 68/26 98 Room Air Labs: Labs Test 08/06/16 03:20 08/06/16 20:45 08/07/16 00:30 08/07/16 04:14 White Blood Count 6.0 K/UL (4.8-10.8) Red Blood Count 4.13 M/UL (4.70-6.10) Hemoglobin 13.4 G/DL (14.2-18.0) Hematocrit 41.7 % (42.0-52.0) Mean Corpuscular Volume 101 FL (80-99) Mean Corpuscular Hemoglobin 32.5 PG (27.0-31.0) Mean Corpuscular Hemoglobin Concent 32.2 G/DL (32.0-36.0) Red Cell Distribution Width 14.2 % (11.6-14.8) Platelet Count 108 K/UL (150-450) Mean Platelet Volume 7.1 FL (6.5-10.1) Neutrophils (%) (Auto) 66.9 % (45.0-75.0) Lymphocytes (%) (Auto) 22.9 % (20.0-45.0) Monocytes (%) (Auto) 9.3 % (1.0-10.0) Eosinophils (%) (Auto) 0.2 % (0.0-3.0) Basophils (%) (Auto) 0.7 % (0.0-2.0) Prothrombin Time 11.1 SEC (9.30-11.50) Prothromb Time International Ratio 1.1 (0.9-1.1) Activated Partial Thromboplast Time 23 SEC (23-33) Sodium Level 138 mEQ/L (135-145) Potassium Level 3.5 mEQ/L (3.4-4.9) Chloride Level 91 mEQ/L (98-107) Carbon Dioxide Level 31 mEQ/L (20-30) Anion Gap 16 (5-15) Blood Urea Nitrogen 70 mg/dL (7-23) Creatinine 4.7 mg/dL (0.7-1.2) Estimat Glomerular Filtration Rate mL/min (>60) Glucose Level 99 mg/dL (74-106) Calcium Level 9.9 mg/dL (8.6-10.2) Total Bilirubin 0.6 mg/dL (0.0-1.2) Aspartate Amino Transf (AST/SGOT) 184 U/L (5-40) Alanine Aminotransferase (ALT/SGPT) 110 U/L (3-41) Alkaline Phosphatase 49 U/L (40-129) Total Creatine Kinase 276 U/L (38-174) Creatine Kinase MB 5.5 ng/mL (< 6.7) Creatine Kinase MB Relative Index 1.9 Troponin I 0.33 ng/mL (<=0.30) 0.36 ng/mL (<=0.30) 0.39 ng/mL (<=0.30) Pro-B-Type Natriuretic Peptide 91347 pg/mL (0-450) Total Protein 5.8 g/dL (6.6-8.7) Albumin 3.3 g/dL (3.5-5.2) Globulin 2.5 g/dL Albumin/Globulin Ratio 1.3 (1.0-2.7) Phosphorus Level 3.5 mg/dL (2.5-4.8) Magnesium Level 1.6 mg/dL (1.7-2.5) Test 08/07/16 04:15 08/07/16 17:00 08/07/16 20:20 08/08/16 04:30 White Blood Count 5.7 K/UL (4.8-10.8) 4.2 K/UL (4.8-10.8) Red Blood Count 3.71 M/UL (4.70-6.10) 3.39 M/UL (4.70-6.10) Hemoglobin 11.9 G/DL (14.2-18.0) 11.0 G/DL (14.2-18.0) Hematocrit 37.4 % (42.0-52.0) 34.0 % (42.0-52.0) Mean Corpuscular Volume 101 FL (80-99) 100 FL (80-99) Mean Corpuscular Hemoglobin 32.2 PG (27.0-31.0) 32.4 PG (27.0-31.0) Mean Corpuscular Hemoglobin Concent 31.9 G/DL (32.0-36.0) 32.2 G/DL (32.0-36.0) Red Cell Distribution Width 14.2 % (11.6-14.8) 14.3 % (11.6-14.8) Platelet Count 93 K/UL (150-450) 89 K/UL (150-450) Mean Platelet Volume 7.6 FL (6.5-10.1) 7.4 FL (6.5-10.1) Neutrophils (%) (Auto) % (45.0-75.0) % (45.0-75.0) Lymphocytes (%) (Auto) % (20.0-45.0) % (20.0-45.0) Monocytes (%) (Auto) % (1.0-10.0) % (1.0-10.0) Eosinophils (%) (Auto) % (0.0-3.0) % (0.0-3.0) Basophils (%) (Auto) % (0.0-2.0) % (0.0-2.0) Differential Total Cells Counted 100 Neutrophils % (Manual) 74 % (45-75) Lymphocytes % (Manual) 18 % (20-45) Monocytes % (Manual) 8 % (1-10) Eosinophils % (Manual) 0 % (0-3) Basophils % (Manual) 0 % (0-2) Band Neutrophils 0 % (0-8) Platelet Estimate Decreased Platelet Morphology Normal Hypochromasia 1+ Anisocytosis 1+ Macrocytosis 1+ Sodium Level 141 mEQ/L (135-145) 139 mEQ/L (135-145) Potassium Level 3.7 mEQ/L (3.4-4.9) 3.4 mEQ/L (3.4-4.9) Chloride Level 95 mEQ/L (98-107) 96 mEQ/L (98-107) Carbon Dioxide Level 29 mEQ/L (20-30) 28 mEQ/L (20-30) Anion Gap 17 (5-15) 15 (5-15) Blood Urea Nitrogen 75 mg/dL (7-23) 63 mg/dL (7-23) Creatinine 5.0 mg/dL (0.7-1.2) 4.6 mg/dL (0.7-1.2) Estimat Glomerular Filtration Rate mL/min (>60) mL/min (>60) Glucose Level 80 mg/dL (74-106) 84 mg/dL (74-106) Calcium Level 9.4 mg/dL (8.6-10.2) 9.0 mg/dL (8.6-10.2) Total Bilirubin 0.5 mg/dL (0.0-1.2) 0.5 mg/dL (0.0-1.2) Aspartate Amino Transf (AST/SGOT) 145 U/L (5-40) 122 U/L (5-40) Alanine Aminotransferase (ALT/SGPT) 93 U/L (3-41) 82 U/L (3-41) Alkaline Phosphatase 44 U/L (40-129) 40 U/L (40-129) Total Creatine Kinase 217 U/L (38-174) 248 U/L (38-174) Creatine Kinase MB 5.5 ng/mL (< 6.7) Creatine Kinase MB Relative Index 2.5 Troponin I 0.33 ng/mL (<=0.30) < 0.30 ng/mL (<=0.30) Pro-B-Type Natriuretic Peptide 46439 pg/mL (0-450) 96010 pg/mL (0-450) Total Protein 5.3 g/dL (6.6-8.7) 4.9 g/dL (6.6-8.7) Albumin 3.0 g/dL (3.5-5.2) 2.7 g/dL (3.5-5.2) Globulin 2.3 g/dL 2.2 g/dL Albumin/Globulin Ratio 1.3 (1.0-2.7) 1.2 (1.0-2.7) Urine Color Pale yellow Urine Appearance Clear Urine pH 5 (4.5-8.0) Urine Specific [place] 1.010 (1.005-1.035) Urine Protein Negative (NEGATIVE) Urine Glucose (UA) Negative (NEGATIVE) Urine Ketones Negative (NEGATIVE) Urine Occult Blood 3+ (NEGATIVE) Urine Nitrite Negative (NEGATIVE) Urine Bilirubin Negative (NEGATIVE) Urine Urobilinogen Normal MG/DL (0.0-1.0) Urine Leukocyte Esterase Negative (NEGATIVE) Urine RBC 5-10 /HPF (0 - 0) Urine WBC 2-4 /HPF (0 - 0) Urine Squamous Epithelial Cells None /LPF (NONE/OCC) Urine Amorphous Sediment Few /LPF (NONE) Urine Bacteria Moderate /HPF (NONE) Hemoglobin A1c 5.2 % (< 6.0) Uric Acid 6.8 mg/dL (3.0-7.5) Phosphorus Level 3.0 mg/dL (2.5-4.8) Magnesium Level 1.6 mg/dL (1.7-2.5) Ferritin 1822 ng/mL (10-230) Gamma Glutamyl Transpeptidase 42 U/L (8-61) C-Reactive Protein, Quantitative < 0.3 mg/dL (< 0.5) Triglycerides Level 102 mg/dL (< 150) Cholesterol Level 97 mg/dL (< 200) LDL Cholesterol 46 mg/dL (60-99) HDL Cholesterol 31 mg/dL (> 60) Cholesterol/HDL Ratio 3.1 (3.3-4.4) Vitamin B12 Level 1443 pg/mL (211-946) Thyroid Stimulating Hormone (TSH) 1.880 uIU/mL (0.300-4.500) Objective: GENERAL: The patient is a well-developed male, comfortable of advanced age. HEENT: Fairly negative. Extraocular movements are grossly intact. Oropharynx is moist. NECK: Supple. No jugular venous distention. LUNGS: Fairly clear. Symmetric. CARDIAC: Normal S1 and S2. Fairly regular. Noted murmur, which is soft. No rubs or gallops. AICD noted in the chest wall. ABDOMEN: Soft and nontender. No hepatosplenomegaly. EXTREMITIES: No cyanosis or clubbing. No edema. NEUROLOGIC: Grossly nonfocal. Hard of hearing. Slightly confused. skin exam reviewed JUSTUS TANG Aug 08, 2016 12:35
--- NOTE | 2016-08-08 16:26 | General Progress Note ---
Assessment/Plan Status: unchanged Assessment/Plan Has h/o CKD - presents with Cr 4.7 up to 5 back to 4.6 Etiologies , multifactoria, mainly: Heart disease and cardiomyopathy leading to low renal perfusion and OR related to drugs: Lasix , Zaroxyllin, Reason for admit: Cardiac disease, Malignant arrhythmia leading to defibrillator discharge Dilated cardiomyopathy Hypotension Acute cardiac ischemia due to defibrillator discharge, with abnormal Troponin I Plan: Urinalysis- Gastric support- Kidney JOSE and Echo ejfx 25% monitor renal parameters- Subjective ROS Limited/Unobtainable: No Constitutional: Reports: malaise Allergies: Coded Allergies: No Known Allergies (Unverified , 08/06/16) Objective Last 24 Hour Vital Signs Date Time Temp Pulse Resp B/P Pulse Ox O2 Delivery O2 Flow Rate FiO2 08/08/16 15:00 73 18 82/24 98 Room Air 08/08/16 14:00 83 18 85/42 97 Room Air 08/08/16 13:04 73 18 95/60 97 Room Air 08/08/16 12:06 72 08/08/16 12:00 96.5 73 18 100/59 97 Room Air 08/08/16 11:00 70 16 92/54 98 Room Air 08/08/16 10:00 72 16 82/34 97 Room Air 08/08/16 09:00 70 16 85/25 98 Room Air 08/08/16 08:00 96.5 71 15 86/26 98 Room Air 08/08/16 08:00 70 08/08/16 07:30 70 12 85/25 97 Room Air 08/08/16 06:00 70 13 92/35 96 Room Air 08/08/16 05:00 70 15 82/46 95 Room Air 08/08/16 04:00 70 08/08/16 04:00 95.0 70 15 88/16 99 Room Air 08/08/16 03:00 71 15 112/40 97 Room Air 08/08/16 02:00 70 13 88/43 97 Room Air 08/08/16 01:00 74 10 115/46 96 Room Air 08/08/16 00:00 71 08/08/16 00:00 94.5 71 15 104/38 100 Room Air 08/07/16 23:00 72 14 89/49 98 Room Air 08/07/16 22:00 70 12 95/65 99 Room Air 08/07/16 21:00 71 14 88/59 99 Room Air 08/07/16 20:00 71 08/07/16 20:00 71 15 84/50 100 Room Air 08/07/16 19:00 95.0 71 12 81/48 98 Room Air 08/07/16 18:30 72 18 80/40 99 Room Air 08/07/16 18:00 70 19 83/42 98 Room Air 08/07/16 17:30 70 19 81/43 99 Room Air 08/07/16 17:00 71 18 82/42 99 Room Air 08/07/16 16:30 70 19 80/40 98 Room Air Intake and Output 08/07/16 08/08/16 19:00 07:00 Intake Total 1691.91 ml 302.6 ml Output Total 160 ml 500 ml Balance 1531.91 ml -197.4 ml Intake Oral 360 ml 120 ml IV Total 1331.91 ml 182.6 ml Output Urine Total 160 ml 500 ml # Voids 3 Laboratory Tests 08/07/16 17:00: Troponin I < 0.30 08/07/16 20:20: Urine Color Pale yellow, Urine Appearance Clear, Urine pH 5, Urine Specific [place] 1.010, Urine Protein Negative, Urine Glucose (UA) Negative, Urine Ketones Negative, Urine Occult Blood 3+H, Urine Nitrite Negative, Urine Bilirubin Negative, Urine Urobilinogen Normal, Urine Leukocyte Esterase Negative , Urine RBC 5-10H, Urine WBC 2-4, Urine Squamous Epithelial Cells None, Urine Amorphous Sediment FewH, Urine Bacteria ModerateH 08/08/16 04:30: White Blood Count 4.2L, Red Blood Count 3.39L, Hemoglobin 11.0L, Hematocrit 34.0L, Mean Corpuscular Volume 100H, Mean Corpuscular Hemoglobin 32.4H, Mean Corpuscular Hemoglobin Concent 32.2, Red Cell Distribution Width 14.3, Platelet Count 89L, Mean Platelet Volume 7.4, Neutrophils (%) (Auto) , Lymphocytes (%) ( Auto) , Monocytes (%) (Auto) , Eosinophils (%) (Auto) , Basophils (%) (Auto) , Sodium Level 139, Potassium Level 3.4, Chloride Level 96L, Carbon Dioxide Level 28, Anion Gap 15, Blood Urea Nitrogen 63H, Creatinine 4.6H, Estimat Glomerular Filtration Rate , Glucose Level 84, Hemoglobin A1c 5.2, Uric Acid 6.8, Calcium Level 9.0, Phosphorus Level 3.0, Magnesium Level 1.6L, Ferritin 1822H, Total Bilirubin 0.5, Gamma Glutamyl Transpeptidase 42, Aspartate Amino Transf (AST/ SGOT) 122H, Alanine Aminotransferase (ALT/SGPT) 82H, Alkaline Phosphatase 40, Total Creatine Kinase 248H, C-Reactive Protein, Quantitative < 0.3, Pro-B-Type Natriuretic Peptide 06904N, Total Protein 4.9L, Albumin 2.7L, Globulin 2.2, Albumin/Globulin Ratio 1.2, Triglycerides Level 102, Cholesterol Level 97, LDL Cholesterol 46L, HDL Cholesterol 31, Cholesterol/HDL Ratio 3.1L, Vitamin B12 Level 1443H, Folate [Pending], Thyroid Stimulating Hormone (TSH) 1.880, Cortisol [Pending] Height (Feet): 5 Height (Inches): 10.00 Weight (Pounds): 150 General Appearance: lethargic Cardiovascular: pacemaker/AICD Respiratory/Chest: decreased breath sounds Abdomen: soft Objective other physical exam not changed TETE CABRERA Aug 08, 2016 16:26
[2016-08-08] MEDS ORDERED: Amiodarone 200mg tab ORAL SCH (21:00)
[2016-08-09] VITALS: BP 90/26
--- NOTE | 2016-08-09 03:09 | Progress Note ---
DATE: 08/08/2016 CARDIOLOGY PROGRESS NOTE: SUBJECTIVE: The patient's condition remains critical. Prognosis remains guarded. I spoke yesterday with the patient's and daughter at bedside in detail after discussing the patient's prior condition with his physicians at [facility]. I have made clear to the patient's family members that his mortality was probably around 50% based on his severe left ventricular dysfunction with ejection fraction less than 20%, malignant arrhythmias recurring with defibrillator in place and renal failure as well as advanced age of almost 89 years. Today, the patient has less shortness of breath. Following adjustments in the pacemaker defibrillator device yesterday, he has not had any new shock. He remains on IV amiodarone. OBJECTIVE: VITAL SIGNS: Blood pressure ranging from 80-95 systolic, heart rate 80, respiratory rate 20, monitor rhythm reveals frequent ventricular ectopics and demand pacing, but no sustained ventricular tachycardia today. NECK: Supple. Jugular venous pressure elevated. LUNGS: With few rales. CARDIAC: Irregular rhythm. Normal S1, paradoxically split S2. ABDOMEN: Soft. EXTREMITIES: Trace edema. Moderate ecchymoses. LABORATORY DATA: BUN 63 and creatinine 4.6. Magnesium 1.6. TSH 1.8. Hemoglobin 11.0, white count 4.2, and platelets 89,000. IMPRESSION: 1. Sustained ventricular tachycardia. 2. Ischemic cardiomyopathy. 3. Cardiac defibrillator. 4. Acute and chronic systolic congestive heart failure. 5. Thrombocytopenia. 6. Paroxysmal atrial fibrillation. PLAN: Discontinue heparin in view of low platelet count. No anticoagulation due to bleeding risk. transition from IV to oral amiodarone. Hold diuresis. Maximize anti failure regimen tolerated by blood pressure. Transfer to [facility] for electrophysiologic testing and possible ablation. Roger Interiano M.D. DR: Albert JOB#: [id number] CC:
[2016-08-09 04:00] VITALS: BP 90/46
--- NOTE | 2016-08-09 05:39 | Progress Note ---
DATE: 08/07/2016 CARDIOLOGY PROGRESS NOTE SUBJECTIVE: The patient was seen and evaluated in the intensive care unit, after being transferred there early this morning because of hypotension and recurring ICD shocks with recurring ventricular tachycardia. The case was discussed with the patient's daughter and at bedside. The patient's records from [facility] were reviewed in detail and corroborated with the patient's family. It appears that since he was discharged from [facility] last several weeks ago, he has been bed-bound without any ambulation or mobilization due to low blood pressure readings and dizziness. Today, he feels palpitations and weakness. He continues to have low blood pressure rate and sustained ventricular arrhythmia. PHYSICAL EXAMINATION: VITAL SIGNS: Blood pressure is 95/50, heart rate 70, and respiratory rate 12. HEENT: Conjunctivae pink. Sclerae are anicteric. NECK: Supple. Jugular venous pressure greater than 10. LUNGS: With few rales. CARDIAC: Regular rhythm. Rapid rate. Normal S1 and S2. Point of maximum pulse is diffuse and laterally displaced. ABDOMEN: Soft. No fluid shifting. EXTREMITIES: Reveal trace edema and moderate ecchymoses on the skin. LABORATORY AND DIAGNOSTIC DATA: White count 5.7, hemoglobin 11.9. Potassium 3.4 , troponin less than 0.3. Initially it was 0.39. BUN 75 and creatinine 5.0. Pro-natriuretic peptide is 24,000. Albumin 3. IMPRESSION: 1. Ischemic cardiomyopathy with prior coronary artery bypass graft. Systolic dysfunction with ejection fraction less than 20%. Acute on chronic systolic congestive heart failure. 2. Nonsustained ventricular tachycardia. 3. History of cardiac defibrillator. 4. Chronic renal failure. 5. Anemia of chronic kidney failure. PLAN: Intravenous amiodarone, hold diuresis, protein supplement, DVT prophylaxis, defibrillator interrogation and I have contacted the patient's certified vehicle fire investigator who has made the recommendations for reprogramming the device. I have also spoken with his dental hygiene instructor Dr. Rodger Leon, who confirms baseline creatinine in the range of 4 to 4.5 with chronic low blood pressure. Roger Interiano M.D. DR: Oral JOB#: [id number] CC:
[2016-08-09 07:46] LABS: CORTISOL LC 18.4 ug/dL (.)
[2016-08-09 08:00] VITALS: BP 117/45
[2016-08-09] MEDS: Atorvastatin 80mg tab ORAL SCH (08:29)
[2016-08-09] MEDS: Calcium Carbonate 500mg w/Vit D 200iu tab ORAL SCH (08:29)
[2016-08-09] MEDS: Vitamin A&D Oint 2oz Tube TOPIC SCH ×2 (08:30→21:29)
[2016-08-09] MEDS: Aspirin EC 81mg tab ORAL SCH (08:30)
[2016-08-09] MEDS: Flonase Nasal Inhaler 16gm NASAL SCH (08:32)
[2016-08-09] MEDS: Amiodarone 200mg tab ORAL SCH ×2 (08:33→21:28)
--- NOTE | 2016-08-09 08:41 | Critical Care Progress Note ---
Assessment/Plan Assessment/Plan IMPRESSION: 1. Automatic implantable cardioverter-defibrillator with firing possible ventricular dysrhythmia. 2. Evidence of acute on chronic renal failure. 3. Evidence of transaminitis of unclear etiology possibly due to statin use. 4. Elevated natriuretic peptide . 5. Elevated troponin possible non-ST elevation myocardial infarction 6. Elevated hypocholesterolemia possible coronary artery disease. 7. Evidence of mild protein-calorie malnutrition . 8. Advanced age. 9. Reduced hearing. 10. ischemic cardiomyopathy PLAN await evaluation of AICD monitor in [place] on amiodarone monitor labs monitor blood pressure stabilize wound care will discuss plan for discharge impression, plan, and exam edited and reviewed in detail care discussed with SECURITY ARCHITECT care time 35 minutes Critical Care - Subjective Interval Events: transferred out of ICU care noted d/w cards and renal Condition: improving I&O: Intake and Output 08/08/16 08/09/16 19:00 07:00 Intake Total 709.2 ml 230 ml Output Total 120 ml 250 ml Balance 589.2 ml -20 ml Intake Oral 510 ml 30 ml IV Total 199.2 ml 200 ml Output Urine Total 120 ml 250 ml # Voids 1 4 Critical Care - Objective Last 24 Hour Vital Signs Date Time Temp Pulse Resp B/P Pulse Ox O2 Delivery O2 Flow Rate FiO2 08/09/16 04:00 73 08/09/16 04:00 98.0 71 20 90/46 98 Room Air 08/09/16 00:00 98.4 70 20 90/26 97 Room Air 08/09/16 00:00 94 08/08/16 23:00 73 18 99/21 98 Room Air 08/08/16 22:00 70 16 97/28 98 Room Air 08/08/16 21:00 75 18 107/22 98 Room Air 08/08/16 20:00 95.9 73 18 107/25 100 Room Air 08/08/16 20:00 73 08/08/16 19:00 73 18 90/20 99 Room Air 08/08/16 18:00 75 18 101/29 99 Room Air 08/08/16 17:00 77 18 103/29 98 Room Air 08/08/16 16:30 73 18 88/21 97 Room Air 08/08/16 16:00 74 08/08/16 16:00 96.0 73 18 99/59 97 Room Air 08/08/16 15:30 71 18 87/23 97 Room Air 08/08/16 15:00 73 18 82/24 98 Room Air 08/08/16 14:00 83 18 85/42 97 Room Air 08/08/16 13:04 73 18 95/60 97 Room Air 08/08/16 12:06 72 08/08/16 12:00 96.5 73 18 100/59 97 Room Air 08/08/16 11:00 70 16 92/54 98 Room Air 08/08/16 10:00 72 16 82/34 97 Room Air 08/08/16 09:00 70 16 85/25 98 Room Air Labs: Laboratory Tests Test 08/09/16 05:10 Pro-B-Type Natriuretic Peptide 67218 pg/mL (0-450) H Objective: GENERAL: The patient is a well-developed male, comfortable of advanced age. HEENT: Fairly negative. Extraocular movements are grossly intact. Oropharynx is moist. NECK: Supple. No jugular venous distention. LUNGS: Fairly clear. Symmetric. CARDIAC: Normal S1 and S2. Fairly regular. Noted murmur, which is soft. No rubs or gallops. AICD noted in the chest wall. ABDOMEN: Soft and nontender. No hepatosplenomegaly. EXTREMITIES: No cyanosis or clubbing. No edema. NEUROLOGIC: Grossly nonfocal. Hard of hearing. skin exam reviewed Micro: Microbiology Date/Time Source Procedure Growth Status 08/07/16 20:20 Urine,Clean Catch Urine Culture - Preliminary NO GROWTH AFTER 24 HOURS Resulted JUSTUS TANG Aug 09, 2016 08:41
[2016-08-09] MEDS ORDERED: Heparin 5000 units/ml inj SUBQ SCH (09:00)
[2016-08-09 12:00] VITALS: BP 99/54
--- NOTE | 2016-08-09 12:01 | Diagnostic Imaging Report ---
Indication:Elevated Bun and Creatinine. Technique: Grayscale and duplex Doppler imaging of the kidneys performed. Comparison: None Findings: There are echogenic shadowing foci in multiple locations within the left kidney consistent with nonobstructive stones. Question of stone in the right kidney as well. There is cortical atrophy slightly increased echogenicity of the kidneys. There is a cyst in the right kidney measuring one CM in the upper pole. There is a 1.4 cm cyst within the left kidney. There is no hydronephrosis demonstrated. Prostate is enlarged heterogeneous having a volume of about 50 cc. IVC is unremarkable. Bladder is unremarkable. The right kidney is 10 CM. Left kidney is 11 CM. Impression: Nonobstructive nephrolithiasis Medical renal disease Bilateral renal cysts Prostate hypertrophy
--- NOTE | 2016-08-09 13:29 | General Progress Note ---
Assessment/Plan Status: stable - from renal stand Status Narrative no labs today- Cr down 4.6 Assessment/Plan Has h/o CKD - presents with Cr 4.7 up to 5 back to 4.6 Etiologies , multifactoria, mainly: Heart disease and cardiomyopathy leading to low renal perfusion and OR related to drugs: Lasix , Zaroxyllin, Reason for admit: Cardiac disease, Malignant arrhythmia leading to defibrillator discharge Dilated cardiomyopathy Hypotension Acute cardiac ischemia due to defibrillator discharge, with abnormal Troponin I Plan: Labs in am- Gastric support- Kidney JOSE Nonobstructive nephrolithiasis Medical renal disease Bilateral renal cysts Prostate hypertrophy Echo ejfx 25% monitor renal parameters- Subjective ROS Limited/Unobtainable: No Constitutional: Reports: malaise, weakness Allergies: Coded Allergies: No Known Allergies (Unverified , 08/06/16) Objective Last 24 Hour Vital Signs Date Time Temp Pulse Resp B/P Pulse Ox O2 Delivery O2 Flow Rate FiO2 08/09/16 08:00 97.2 70 20 117/45 99 Room Air 08/09/16 08:00 70 08/09/16 04:00 73 08/09/16 04:00 98.0 71 20 90/46 98 Room Air 08/09/16 00:00 98.4 70 20 90/26 97 Room Air 08/09/16 00:00 94 08/08/16 23:00 73 18 99/21 98 Room Air 08/08/16 22:00 70 16 97/28 98 Room Air 08/08/16 21:00 75 18 107/22 98 Room Air 08/08/16 20:00 95.9 73 18 107/25 100 Room Air 08/08/16 20:00 73 08/08/16 19:00 73 18 90/20 99 Room Air 08/08/16 18:00 75 18 101/29 99 Room Air 08/08/16 17:00 77 18 103/29 98 Room Air 08/08/16 16:30 73 18 88/21 97 Room Air 08/08/16 16:00 74 08/08/16 16:00 96.0 73 18 99/59 97 Room Air 08/08/16 15:30 71 18 87/23 97 Room Air 08/08/16 15:00 73 18 82/24 98 Room Air 08/08/16 14:00 83 18 85/42 97 Room Air Intake and Output 08/08/16 08/09/16 19:00 07:00 Intake Total 709.2 ml 230 ml Output Total 120 ml 250 ml Balance 589.2 ml -20 ml Intake Oral 510 ml 30 ml IV Total 199.2 ml 200 ml Output Urine Total 120 ml 250 ml # Voids 1 4 Laboratory Tests 08/09/16 05:10: Pro-B-Type Natriuretic Peptide 74309K Height (Feet): 5 Height (Inches): 10.00 Weight (Pounds): 150 General Appearance: no apparent distress Objective other physical exam not changed TETE CABRERA Aug 09, 2016 13:29
[2016-08-09 16:00] VITALS: BP 96/51
--- NOTE | 2016-08-09 19:48 | Cardiac Electrophysiology PN ---
Assessment/Plan Status: stable, progressing Status Narrative Mr. Merchant is an 89 yo wm w/ CAD, remote hx CABG x4, ischemic cm, CHF, CKD w Cr 5, s/p bivent icd 2/4 for VT who is adm w/ multiple shocks and ATP for VT. Has CKD stage IV He is followed by Dr. Ballard. Noted w/ low MG - being supplemented. Has been stable on telemetry - no further vt noted. Transitioned from IV to po amiodarone. Assessment/Plan Would continue oral amiodarone. Consider addition of mexilitene if remains w/ VT episodes on amiodarone. Maintain K, Mg balance. Not a candidate for aggressive intervention, incl VT ablation, due to age and comorbidities. Subjective ROS Limited/Unobtainable: No Subjective No CP or palpitations. No further icd shocks Objective Last 24 Hour Vital Signs Date Time Temp Pulse Resp B/P Pulse Ox O2 Delivery O2 Flow Rate FiO2 08/09/16 16:00 96.6 73 24 96/51 97 Room Air 08/09/16 15:28 74 08/09/16 12:00 74 08/09/16 12:00 97.0 72 20 99/54 97 Room Air 08/09/16 08:00 97.2 70 20 117/45 99 Room Air 08/09/16 08:00 70 08/09/16 04:00 73 08/09/16 04:00 98.0 71 20 90/46 98 Room Air 08/09/16 00:00 98.4 70 20 90/26 97 Room Air 08/09/16 00:00 94 08/08/16 23:00 73 18 99/21 98 Room Air 08/08/16 22:00 70 16 97/28 98 Room Air 08/08/16 21:00 75 18 107/22 98 Room Air 08/08/16 20:00 95.9 73 18 107/25 100 Room Air 08/08/16 20:00 73 General Appearance: WD/WN, no apparent distress, alert Neck: no JVD Rhythm: NSR Cardiovascular: normal rate, regular rhythm, systolic murmur - ii/vi HSM at apex. no s3 Respiratory/Chest: lungs clear, normal breath sounds Abdomen: non tender, soft Extremities: no swelling, other - ecchymosis bilat upper ext and L chest Intake and Output 08/08/16 08/09/16 19:00 07:00 Intake Total 709.2 ml 230 ml Output Total 120 ml 250 ml Balance 589.2 ml -20 ml Intake Oral 510 ml 30 ml IV Total 199.2 ml 200 ml Output Urine Total 120 ml 250 ml # Voids 1 4 Laboratory Tests Test 08/09/16 05:10 Pro-B-Type Natriuretic Peptide 78160 pg/mL (0-450) H Microbiology Date/Time Source Procedure Growth Status 08/07/16 20:20 Urine,Clean Catch Urine Culture - Preliminary NO GROWTH AFTER 24 HOURS Resulted KAROL MENDOZA Aug 09, 2016 19:48
[2016-08-09 20:00] VITALS: BP 101/55
[2016-08-09] MEDS ORDERED: KCl 10% 20 mEq/15ml liquid ORAL ONE (20:00)
[2016-08-10] VITALS: BP 99/50
--- NOTE | 2016-08-10 03:08 | Progress Note ---
DATE: 08/09/2016 CARDIOLOGY PROGRESS NOTE: SUBJECTIVE: The patient is awake and alert. today. No shortness of breath. Blood pressure parameters are more stable. He continues to have paced rhythm. Ventricular ectopics, but no sustained ventricular arrhythmias. OBJECTIVE: VITAL SIGNS: Blood pressure 96/51, pulse 73, and respiratory rate 24. NECK: Supple. LUNGS: Diminished breath sounds. HEART: Irregularly irregular. Normal S1 and paradoxically split S2. ABDOMEN: Soft. EXTREMITIES: Trace edema. Moderate ecchymoses. LABORATORY DATA: Labs are reviewed. Natriuretic peptide is over 20,000. Magnesium yesterday was 1.6. IMPRESSION: 1. Ischemic cardiomyopathy. 2. Sustained ventricular arrhythmias. 3. Implantable cardioverter-defibrillator. 4. Acute on chronic systolic congestive heart failure. 5. Hypomagnesemia. 6. Chronic kidney disease with acute exacerbation. PLAN: Recheck chemistry panel. Replace magnesium. Continue oral amiodarone. May need to start diuresis. Check lipid panel on multidrug anti lipid regimen. Roger Interiano M.D. DR: Albert JOB#: [id number] CC:
[2016-08-10 04:30] VITALS: BP 97/57
--- NOTE | 2016-08-10 05:53 | Critical Care Progress Note ---
Assessment/Plan Assessment/Plan IMPRESSION: 1. Automatic implantable cardioverter-defibrillator with firing possible ventricular dysrhythmia. 2. Evidence of acute on chronic renal failure. 3. Evidence of transaminitis of unclear etiology possibly due to statin use. 4. Elevated natriuretic peptide . 5. Elevated troponin possible non-ST elevation myocardial infarction 6. Elevated hypocholesterolemia possible coronary artery disease. 7. Evidence of mild protein-calorie malnutrition . 8. Advanced age. 9. Reduced hearing. 10. ischemic cardiomyopathy with poor EF PLAN cardiology clearance monitor in [place] on amiodarone monitor labs per renal monitor blood pressure; still borderline stabilize wound care will discuss plan for discharge with cardiology and hope to proceed impression, plan, and exam edited and reviewed in detail care discussed with SECTION HAND care time 35 minutes Critical Care - Subjective Interval Events: appears comfortable no distress cards reviewed I&O: Intake and Output 08/09/16 08/10/16 19:00 07:00 Intake Total 100 ml 120 ml Output Total 300 ml 2 ml Balance -200 ml 118 ml Intake Oral 100 ml 120 ml Output Urine Total 300 ml 2 ml # Voids 2 2 Critical Care - Objective Last 24 Hour Vital Signs Date Time Temp Pulse Resp B/P Pulse Ox O2 Delivery O2 Flow Rate FiO2 08/10/16 00:22 71 08/10/16 00:00 98.0 65 20 99/50 99 Room Air 08/09/16 20:00 97.0 71 24 101/55 100 Room Air 08/09/16 19:18 77 08/09/16 16:00 96.6 73 24 96/51 97 Room Air 08/09/16 15:28 74 08/09/16 12:00 74 08/09/16 12:00 97.0 72 20 99/54 97 Room Air 08/09/16 08:00 97.2 70 20 117/45 99 Room Air 08/09/16 08:00 70 Labs: Labs Test 08/07/16 17:00 08/07/16 20:20 08/08/16 04:30 08/09/16 05:10 Troponin I < 0.30 ng/mL (<=0.30) Urine Color Pale yellow Urine Appearance Clear Urine pH 5 (4.5-8.0) Urine Specific [place] 1.010 (1.005-1.035) Urine Protein Negative (NEGATIVE) Urine Glucose (UA) Negative (NEGATIVE) Urine Ketones Negative (NEGATIVE) Urine Occult Blood 3+ (NEGATIVE) Urine Nitrite Negative (NEGATIVE) Urine Bilirubin Negative (NEGATIVE) Urine Urobilinogen Normal MG/DL (0.0-1.0) Urine Leukocyte Esterase Negative (NEGATIVE) Urine RBC 5-10 /HPF (0 - 0) Urine WBC 2-4 /HPF (0 - 0) Urine Squamous Epithelial Cells None /LPF (NONE/OCC) Urine Amorphous Sediment Few /LPF (NONE) Urine Bacteria Moderate /HPF (NONE) White Blood Count 4.2 K/UL (4.8-10.8) Red Blood Count 3.39 M/UL (4.70-6.10) Hemoglobin 11.0 G/DL (14.2-18.0) Hematocrit 34.0 % (42.0-52.0) Mean Corpuscular Volume 100 FL (80-99) Mean Corpuscular Hemoglobin 32.4 PG (27.0-31.0) Mean Corpuscular Hemoglobin Concent 32.2 G/DL (32.0-36.0) Red Cell Distribution Width 14.3 % (11.6-14.8) Platelet Count 89 K/UL (150-450) Mean Platelet Volume 7.4 FL (6.5-10.1) Neutrophils (%) (Auto) % (45.0-75.0) Lymphocytes (%) (Auto) % (20.0-45.0) Monocytes (%) (Auto) % (1.0-10.0) Eosinophils (%) (Auto) % (0.0-3.0) Basophils (%) (Auto) % (0.0-2.0) Sodium Level 139 mEQ/L (135-145) Potassium Level 3.4 mEQ/L (3.4-4.9) Chloride Level 96 mEQ/L (98-107) Carbon Dioxide Level 28 mEQ/L (20-30) Anion Gap 15 (5-15) Blood Urea Nitrogen 63 mg/dL (7-23) Creatinine 4.6 mg/dL (0.7-1.2) Estimat Glomerular Filtration Rate mL/min (>60) Glucose Level 84 mg/dL (74-106) Hemoglobin A1c 5.2 % (< 6.0) Uric Acid 6.8 mg/dL (3.0-7.5) Calcium Level 9.0 mg/dL (8.6-10.2) Phosphorus Level 3.0 mg/dL (2.5-4.8) Magnesium Level 1.6 mg/dL (1.7-2.5) Ferritin 1822 ng/mL (10-230) Total Bilirubin 0.5 mg/dL (0.0-1.2) Gamma Glutamyl Transpeptidase 42 U/L (8-61) Aspartate Amino Transf (AST/SGOT) 122 U/L (5-40) Alanine Aminotransferase (ALT/SGPT) 82 U/L (3-41) Alkaline Phosphatase 40 U/L (40-129) Total Creatine Kinase 248 U/L (38-174) C-Reactive Protein, Quantitative < 0.3 mg/dL (< 0.5) Pro-B-Type Natriuretic Peptide 60815 pg/mL (0-450) 56471 pg/mL (0-450) Total Protein 4.9 g/dL (6.6-8.7) Albumin 2.7 g/dL (3.5-5.2) Globulin 2.2 g/dL Albumin/Globulin Ratio 1.2 (1.0-2.7) Triglycerides Level 102 mg/dL (< 150) Cholesterol Level 97 mg/dL (< 200) LDL Cholesterol 46 mg/dL (60-99) HDL Cholesterol 31 mg/dL (> 60) Cholesterol/HDL Ratio 3.1 (3.3-4.4) Vitamin B12 Level 1443 pg/mL (211-946) Folate 11.0 ng/mL (>3.0) Thyroid Stimulating Hormone (TSH) 1.880 uIU/mL (0.300-4.500) Cortisol 18.4 ug/dL (.) Objective: GENERAL: The patient is a well-developed male, comfortable of advanced age. HEENT: Fairly negative. Extraocular movements are grossly intact. Oropharynx is moist. NECK: Supple. No jugular venous distention. no JVD LUNGS: Fairly clear. Symmetric. CARDIAC: Normal S1 and S2. Fairly regular. Noted murmur, which is soft. No rubs or gallops. AICD noted in the chest wall. ABDOMEN: Soft and nontender. No hepatosplenomegaly. no distention EXTREMITIES: No cyanosis or clubbing. No edema. NEUROLOGIC: Grossly nonfocal. Hard of hearing. skin exam reviewed Micro: Microbiology Date/Time Source Procedure Growth Status 08/07/16 20:20 Urine,Clean Catch Urine Culture - Preliminary NO GROWTH AFTER 24 HOURS Resulted JUSTUS TANG Aug 10, 2016 05:53
[2016-08-10 06:27] LABS: MEAN CORPUSCULAR HEMOGLOBIN 31.8 PG (27.0-31.0); MEAN CORPUSCULAR HGB CONC 31.7 G/DL (32.0-36.0); MEAN CORPUSCULAR VOLUME 100 FL (80-99); MEAN PLATELET VOLUME 8.5 FL (6.5-10.1); PLATELET COUNT 76 K/UL (150-450); RED BLOOD COUNT 3.48 M/UL (4.70-6.10); RED CELL DISTRIBUTION WIDTH 14.3 % (11.6-14.8); WHITE BLOOD COUNT 3.9 K/UL (4.8-10.8)
[2016-08-10 07:35] LABS: ALANINE AMINOTRANSFERASE 94 U/L (3-41); ALBUMIN/GLOBULIN RATIO 1.2 (1.0-2.7); ANION GAP 12 (5-15); ASPARTATE AMINO TRANSFERASE 147 U/L (5-40); CALCIUM 9.1 mg/dL (8.6-10.2); CARBON DIOXIDE 33 mEQ/L (20-30); CHLORIDE 94 mEQ/L (98-107); CHOLESTEROL 110 mg/dL (< 200); CHOLESTEROL/HDL RATIO 3.4 (3.3-4.4); CREATININE 3.8 mg/dL (0.7-1.2); CRP QUANT 0.3 mg/dL (< 0.5); HEMOLYSIS 8; LDL CHOLESTEROL (CALC.) 55 mg/dL (60-99); MAGNESIUM 2.2 mg/dL (1.7-2.5); PHOSPHORUS 2.2 mg/dL (2.5-4.8); POTASSIUM 3.7 mEQ/L (3.4-4.9); SODIUM 139 mEQ/L (135-145); TOTAL PROTEIN 5.1 g/dL (6.6-8.7); URIC ACID 6.1 mg/dL (3.0-7.5)
[2016-08-10 08:00] VITALS: BP 90/59
[2016-08-10] MEDS: Vitamin A&D Oint 2oz Tube TOPIC SCH ×2 (09:00→22:06)
[2016-08-10] MEDS: Flonase Nasal Inhaler 16gm NASAL SCH (09:00)
[2016-08-10] MEDS: Atorvastatin 80mg tab ORAL SCH (09:57)
[2016-08-10] MEDS: Amiodarone 200mg tab ORAL SCH ×2 (09:58→22:06)
[2016-08-10] MEDS: Calcium Carbonate 500mg w/Vit D 200iu tab ORAL SCH (09:58)
[2016-08-10] MEDS: Aspirin EC 81mg tab ORAL SCH (09:58)
[2016-08-10 12:00] VITALS: BP 113/47
[2016-08-10] MEDS: Spironolactone 25mg tab ORAL SCH (12:56)
[2016-08-10 16:00] VITALS: BP 95/49
--- NOTE | 2016-08-10 16:57 | General Progress Note ---
Assessment/Plan Status: stable - from renal stand Status Narrative Cr lower to 3.8 Assessment/Plan Has h/o CKD - presents with Cr 4.7 up to 5 back to 4.6 now 3.8 Etiologies , multifactoria, mainly: Heart disease and cardiomyopathy leading to low renal perfusion and OR related to drugs: Lasix , Zaroxyllin, Reason for admit: Cardiac disease, Malignant arrhythmia leading to defibrillator discharge Dilated cardiomyopathy Hypotension Acute cardiac ischemia due to defibrillator discharge, with abnormal Troponin I Plan: Labs in am- Gastric support- Kidney JOSE Nonobstructive nephrolithiasis Medical renal disease Bilateral renal cysts Prostate hypertrophy Echo ejfx 25% monitor renal parameters- per consultants Subjective ROS Limited/Unobtainable: No Constitutional: Reports: malaise, weakness Allergies: Coded Allergies: No Known Allergies (Unverified , 08/06/16) Objective Last 24 Hour Vital Signs Date Time Temp Pulse Resp B/P Pulse Ox O2 Delivery O2 Flow Rate FiO2 08/10/16 16:00 97.5 71 19 95/49 99 Room Air 08/10/16 12:00 96.8 70 18 113/47 100 Room Air 08/10/16 12:00 90 08/10/16 08:00 96.3 72 20 90/59 92 Room Air 08/10/16 08:00 78 08/10/16 04:30 98.4 72 20 97/57 96 Room Air 08/10/16 03:42 83 08/10/16 00:22 71 08/10/16 00:00 98.0 65 20 99/50 99 Room Air 08/09/16 20:00 97.0 71 24 101/55 100 Room Air 08/09/16 19:18 77 Intake and Output 08/09/16 08/10/16 19:00 07:00 Intake Total 100 ml 120 ml Output Total 300 ml 2 ml Balance -200 ml 118 ml Intake Oral 100 ml 120 ml Output Urine Total 300 ml 2 ml # Voids 2 2 Laboratory Tests 08/10/16 05:30: White Blood Count 3.9L, Red Blood Count 3.48L, Hemoglobin 11.1L, Hematocrit 34.9L, Mean Corpuscular Volume 100H, Mean Corpuscular Hemoglobin 31.8H, Mean Corpuscular Hemoglobin Concent 31.7L, Red Cell Distribution Width 14.3, Platelet Count 76L, Mean Platelet Volume 8.5, Neutrophils (%) (Auto) , Lymphocytes (%) (Auto) , Monocytes (%) (Auto) , Eosinophils (%) (Auto) , Basophils (%) (Auto) , Sodium Level 139, Potassium Level 3.7, Chloride Level 94L , Carbon Dioxide Level 33H, Anion Gap 12, Blood Urea Nitrogen 53H, Creatinine 3.8H, Estimat Glomerular Filtration Rate , Glucose Level 70L, Uric Acid 6.1, Calcium Level 9.1, Phosphorus Level 2.2L, Magnesium Level 2.2, Total Bilirubin 0.6, Aspartate Amino Transf (AST/SGOT) 147H, Alanine Aminotransferase (ALT/SGPT ) 94H, Alkaline Phosphatase 41, C-Reactive Protein, Quantitative 0.3, Pro-B- Type Natriuretic Peptide 38210I, Total Protein 5.1L, Albumin 2.8L, Globulin 2.3 , Albumin/Globulin Ratio 1.2, Triglycerides Level 113, Cholesterol Level 110, LDL Cholesterol 55L, HDL Cholesterol 32, Cholesterol/HDL Ratio 3.4 Height (Feet): 5 Height (Inches): 10.00 Weight (Pounds): 150 General Appearance: no apparent distress Objective other physical exam not changed TETE CABRERA Aug 10, 2016 16:57
[2016-08-10 20:13] VITALS: BP 104/50
[2016-08-11] VITALS: BP 108/60
[2016-08-11 04:00] VITALS: BP 105/55
--- NOTE | 2016-08-11 04:58 | Progress Note ---
DATE: 08/10/2016 CARDIOLOGY PROGRESS NOTE SUBJECTIVE: The patient feels better. Diuretics resumed today. OBJECTIVE: VITAL SIGNS: Blood pressure 95/49, pulse 71, respiratory rate 19, and afebrile. NECK: Supple. LUNGS: With few rales. CARDIAC: Regular rhythm and rate. Normal S1, paradoxically split S2. ABDOMEN: Soft. EXTREMITIES: Trace edema. Moderate ecchymosis. LABORATORY DATA: White count 3.9 and hemoglobin 11.1. BUN 53, creatinine 3.8, and potassium 3.7. IMPRESSION: 1. Sustained ventricular tachycardia, now stabilized. 2. Defibrillator discharge with associated ischemia. 3. Dilated ischemic cardiomyopathy. 4. Acute on chronic systolic congestive heart failure. 5. Low baseline blood pressure. 6. Acute on chronic renal failure. PLAN: 1. Titrate maintenance dose of diuretics. 2. Anti-failure regimen to be continued with hold parameters based on low range blood pressure readings. 3. Continue amiodarone 400 mg daily. 4. Mobilize and anticipation of discharge. Te Child JOB#: [id number] CC: BRITTANI
[2016-08-11 08:00] VITALS: BP 144/77
--- NOTE | 2016-08-11 08:30 | Critical Care Progress Note ---
Assessment/Plan Assessment/Plan IMPRESSION: 1. Automatic implantable cardioverter-defibrillator with firing possible ventricular dysrhythmia. 2. Evidence of acute on chronic renal failure. 3. Evidence of transaminitis of unclear etiology possibly due to statin use. 4. Elevated natriuretic peptide . 5. Elevated troponin possible non-ST elevation myocardial infarction 6. Elevated hypocholesterolemia possible coronary artery disease. 7. Evidence of mild protein-calorie malnutrition . 8. Advanced age. 9. Reduced hearing. 10. ischemic cardiomyopathy with poor EF PLAN cardiology clearance noted on amiodarone monitor labs per renal monitor blood pressure; stabilize wound care proceed with dc today if accepted per family, they want [facility] impression, plan, and exam edited and reviewed in detail care discussed with [employer] care time 35 minutes Critical Care - Subjective Interval Events: agreeable to snf has asymptomatic VT last night Condition: stable EKG Rhythm: Sinus Rhythm I&O: Intake and Output 08/10/16 08/11/16 19:00 07:00 Intake Total 120 ml 300 ml Output Total 200 ml 1100 ml Balance -80 ml -800 ml Intake Oral 120 ml 300 ml Output Urine Total 200 ml 1100 ml # Voids 1 4 # Bowel Movements 1 Critical Care - Objective Last 24 Hour Vital Signs Date Time Temp Pulse Resp B/P Pulse Ox O2 Delivery O2 Flow Rate FiO2 08/11/16 04:00 97.4 67 20 105/55 100 Room Air 08/11/16 03:33 72 08/11/16 00:00 98.0 70 20 108/60 94 Room Air 08/10/16 23:43 86 08/10/16 20:13 97.5 71 18 104/50 98 Room Air 08/10/16 20:00 81 08/10/16 16:00 83 08/10/16 16:00 97.5 71 19 95/49 99 Room Air 08/10/16 12:00 96.8 70 18 113/47 100 Room Air 08/10/16 12:00 90 Labs: Labs Test 08/09/16 05:10 08/10/16 05:30 Pro-B-Type Natriuretic Peptide 44023 pg/mL (0-450) 35852 pg/mL (0-450) White Blood Count 3.9 K/UL (4.8-10.8) Red Blood Count 3.48 M/UL (4.70-6.10) Hemoglobin 11.1 G/DL (14.2-18.0) Hematocrit 34.9 % (42.0-52.0) Mean Corpuscular Volume 100 FL (80-99) Mean Corpuscular Hemoglobin 31.8 PG (27.0-31.0) Mean Corpuscular Hemoglobin Concent 31.7 G/DL (32.0-36.0) Red Cell Distribution Width 14.3 % (11.6-14.8) Platelet Count 76 K/UL (150-450) Mean Platelet Volume 8.5 FL (6.5-10.1) Neutrophils (%) (Auto) % (45.0-75.0) Lymphocytes (%) (Auto) % (20.0-45.0) Monocytes (%) (Auto) % (1.0-10.0) Eosinophils (%) (Auto) % (0.0-3.0) Basophils (%) (Auto) % (0.0-2.0) Sodium Level 139 mEQ/L (135-145) Potassium Level 3.7 mEQ/L (3.4-4.9) Chloride Level 94 mEQ/L (98-107) Carbon Dioxide Level 33 mEQ/L (20-30) Anion Gap 12 (5-15) Blood Urea Nitrogen 53 mg/dL (7-23) Creatinine 3.8 mg/dL (0.7-1.2) Estimat Glomerular Filtration Rate mL/min (>60) Glucose Level 70 mg/dL (74-106) Uric Acid 6.1 mg/dL (3.0-7.5) Calcium Level 9.1 mg/dL (8.6-10.2) Phosphorus Level 2.2 mg/dL (2.5-4.8) Magnesium Level 2.2 mg/dL (1.7-2.5) Total Bilirubin 0.6 mg/dL (0.0-1.2) Aspartate Amino Transf (AST/SGOT) 147 U/L (5-40) Alanine Aminotransferase (ALT/SGPT) 94 U/L (3-41) Alkaline Phosphatase 41 U/L (40-129) C-Reactive Protein, Quantitative 0.3 mg/dL (< 0.5) Total Protein 5.1 g/dL (6.6-8.7) Albumin 2.8 g/dL (3.5-5.2) Globulin 2.3 g/dL Albumin/Globulin Ratio 1.2 (1.0-2.7) Triglycerides Level 113 mg/dL (< 150) Cholesterol Level 110 mg/dL (< 200) LDL Cholesterol 55 mg/dL (60-99) HDL Cholesterol 32 mg/dL (> 60) Cholesterol/HDL Ratio 3.4 (3.3-4.4) Objective: GENERAL: The patient is a well-developed male, comfortable of advanced age. HEENT: Fairly negative. Extraocular movements are grossly intact. Oropharynx is moist. hearing deficit NECK: Supple. No jugular venous distention. no JVD LUNGS: Fairly clear. Symmetric. CARDIAC: Normal S1 and S2. Fairly regular. Noted murmur, which is soft. No rubs or gallops. AICD noted in the chest wall. ABDOMEN: Soft and nontender. No hepatosplenomegaly. no distention EXTREMITIES: No cyanosis or clubbing. No edema. NEUROLOGIC: Grossly nonfocal. Hard of hearing. skin exam reviewed bruising noted JUSTUS TANG Aug 11, 2016 08:30
[2016-08-11] MEDS: Amiodarone 200mg tab ORAL SCH (08:46)
[2016-08-11] MEDS: Aspirin EC 81mg tab ORAL SCH (08:46)
[2016-08-11] MEDS: Atorvastatin 80mg tab ORAL SCH (08:46)
[2016-08-11] MEDS: Calcium Carbonate 500mg w/Vit D 200iu tab ORAL SCH (08:46)
[2016-08-11] MEDS: Spironolactone 25mg tab ORAL SCH (08:47)
[2016-08-11] MEDS: Vitamin A&D Oint 2oz Tube TOPIC SCH (08:47)
[2016-08-11] MEDS: Flonase Nasal Inhaler 16gm NASAL SCH (09:00)
[2016-08-11] MEDS ORDERED: Furosemide 40mg tab ORAL SCH (09:00)
[2016-08-11 12:00] VITALS: BP 130/75
--- NOTE | 2016-08-11 13:55 | General Progress Note ---
Assessment/Plan Status: stable Assessment/Plan Has h/o CKD - presents with Cr 4.7 up to 5 back to 4.6 now 3.8 Etiologies , multifactoria, mainly: Heart disease and cardiomyopathy leading to low renal perfusion and OR related to drugs: Lasix , Zaroxyllin, Reason for admit: Cardiac disease, Malignant arrhythmia leading to defibrillator discharge Dilated cardiomyopathy Hypotension Acute cardiac ischemia due to defibrillator discharge, with abnormal Troponin I Plan: Labs in am- Gastric support- Kidney JOSE Nonobstructive nephrolithiasis Medical renal disease Bilateral renal cysts Prostate hypertrophy Echo ejfx 25% monitor renal parameters- per consultants Subjective ROS Limited/Unobtainable: No Constitutional: Reports: malaise, weakness Allergies: Coded Allergies: No Known Allergies (Unverified , 08/06/16) Objective Last 24 Hour Vital Signs Date Time Temp Pulse Resp B/P Pulse Ox O2 Delivery O2 Flow Rate FiO2 08/11/16 12:00 96.1 70 20 130/75 100 Room Air 08/11/16 08:00 96.8 64 18 144/77 99 Room Air 08/11/16 04:00 97.4 67 20 105/55 100 Room Air 08/11/16 03:33 72 08/11/16 00:00 98.0 70 20 108/60 94 Room Air 08/10/16 23:43 86 08/10/16 20:13 97.5 71 18 104/50 98 Room Air 08/10/16 20:00 81 08/10/16 16:00 83 08/10/16 16:00 97.5 71 19 95/49 99 Room Air Intake and Output 08/10/16 08/11/16 19:00 07:00 Intake Total 120 ml 300 ml Output Total 200 ml 1100 ml Balance -80 ml -800 ml Intake Oral 120 ml 300 ml Output Urine Total 200 ml 1100 ml # Voids 1 4 # Bowel Movements 1 Height (Feet): 5 Height (Inches): 10.00 Weight (Pounds): 150 General Appearance: no apparent distress Cardiovascular: normal rate Respiratory/Chest: decreased breath sounds Abdomen: soft Objective other physical exam not changed TETE CABRERA Aug 11, 2016 13:55
[2016-08-11] MEDS ORDERED: NS 550ML IV ONE (14:13)
[2016-08-11] MEDS ORDERED: D5W 550ml IV ONE (14:13)
[2016-08-11] MEDS ORDERED: NS 275ml ONE ×3 (14:13→15:29)
[2016-08-11] MEDS ORDERED: Tubing IV Secondary IV ONE (15:29)
--- NOTE | 2016-08-12 01:28 | Progress Note ---
DATE: 08/11/2016 CARDIOLOGY PROGRESS NOTE SUBJECTIVE: The patient is weak. He needs rehabilitation. Family members have agreed to a [facility] facility. No chest pain or shortness of breath. No ICD shocks. Monitored rhythm sinus with ventricular ectopy that is nonsustained. PHYSICAL EXAMINATION: VITAL SIGNS: Blood pressure 105/55, pulse 67, and respiration 20. NECK: Supple. LUNGS: Diminished breath sounds. CARDIAC: Regular rhythm and rate. Normal S1, paradoxically split S2, a 1/6 systolic apical murmur. ABDOMEN: Soft. EXTREMITIES: With trace edema. SKIN: With moderate ecchymoses. IMPRESSION: 1. Ischemic cardiomyopathy. 2. Acute on chronic systolic congestive heart failure. 3. Cardiac defibrillator. 4. Paroxysmal ventricular tachycardia. 5. Functional decline. 6. Mild protein calorie malnutrition. 7. Hyperlipidemia, on multiple drugs, now decreased to stat . 8. Transaminitis likely due to passive congestion. PLAN: 1. Continue statin therapy. 2. Maintenance dose diuretic with titration. Amiodarone as is. 3. Monitor electrolytes, volume status, and cardiorenal parameters. Te Child JOB#: [id number] CC:
--- NOTE | 2016-08-15 08:37 | Discharge Summary ---
Discharge Summary Hospital Course Date of Admission Aug 06, 2016 at 04:03 Date of Discharge Aug 11, 2016 at 15:30 Admitting Diagnosis AICD firing HPI Tone Merchant is a 89 year old male who was admitted on Aug 06, 2016 at 04:03 for Aicd Firing Hospital Course dc summary # [id number] Discharge Discharge Disposition Patient was discharged to SNF/Subacute Facility(03) Discharge Diagnoses: Discharge Instructions Discharge Instructions Special Instructions I have been assigned to complete a D/C Summary on this account. I was not involved in the patient management Devante Angel)Jessica NP Aug 15, 2016 08:37
--- NOTE | 2016-08-16 01:28 | Discharge Summary 2 SIG ---
DATE OF ADMISSION: 08/06/2016 DATE OF DISCHARGE: 08/11/2016 REASON FOR ADMISSION: 89-year-old male presented to emergency room with AICD firing for the last two days; one episode a day before presentation and four episodes at night prior to presentation. The patient had AICD placed in June at [facility] secondary to syncopal episode. The patient felt like an electrical shock in his left chest. He had no fevers. No chills. No shortness of breath. No chest pain. Workup in the emergency room revealed evidence of renal failure with BUN of 70 and creatinine 4.7. Elevated transaminase with AST of 84 and ALT of 110. Elevated troponin -0.33. No leukocytosis. Stable hemoglobin and hematocrit. Pro-BNP 20,043. EKG revealed paced sinus rhythm. Chest x-ray revealed cardiomegaly, but no acute cardiopulmonary disease. The patient admitted for further management. ADMITTING DIAGNOSES: 1. Automatic implantable cardioverter defibrillator with firing; possible malignant ventricular dysrhythmia versus inappropriate discharge. 2. Elevated troponin, possible non-ST elevation myocardial infarction. 3. Acute on chronic renal failure. 4. Elevated transaminase. 5. Elevated pro-BNP. HOSPITAL COURSE: The patient admitted initially to telemetry bed and was transferred to ICU due to the sustained ventricular dysrhythmia. Cardiology consult was requested. The patient initially started on amiodarone drip, which subsequently was changed to oral amiodarone. Serial troponin were monitored. Serial troponin with minimal elevation. Last troponin on 08/07/2016 was negative. AICD interrogation done as per Cardiology. Echocardiogram revealed ejection fraction of 20% to 25% and right ventricular systolic pressure of 15 as well as moderate left ventricular hypertrophy. [employer] closely followed. Recommended cardiac catheterization as outpatient. Painter Supervisor was involved in the care of this patient. The patient had a renal ultrasound done, which revealed findings consistent with medical renal disease, nonobstructive nephrolithiasis, and prostate hypertrophy. Renal parameters and electrolytes were closely monitored. Nephrotoxics were avoided. Prior to discharge, creatinine down to 3.8. Etiology of renal failure per design chief was multifactorial likely secondary to cardiomyopathy, heart disease as well as side effect of diuretics. Volume support provided. Antiplatelet therapy started. The patient was continuously on bottle packing machine cleaner. The patient was started on diuretic maintenance dose and to be titrated as needed. Amiodarone changed to oral. The patient was stable for transfer to [facility]. DISCHARGE DIAGNOSES: 1. Ischemic cardiomyopathy. 2. Acute on chronic systolic heart failure. 3. Automatic implantable cardioverter defibrillator with firing. 4. Paroxysmal ventricular tachycardia. 5. Acute myocardial ischemia, possible non-ST elevation myocardial infarction. 6. Transaminitis likely secondary to passive congestion. 7. [id number] renal failure. 8. Mild protein-calorie malnutrition. 9. Hyperlipidemia. DISCHARGE MEDICATIONS: List of medication was sent with the patient upon transfer. DISCHARGE INSTRUCTIONS: The patient was discharged to [facility]. The patient needs close monitoring of the volume status, electrolytes, cardiorenal parameters. The patient on maintenance dose of diuretic and titrate as needed. Rowdy Royal M.D. I have been assigned to dictate discharge summary on this account and I was not involved in the patient's management. Jsesica BowmanJulia vergara DR: Noel JOB#: [id number] CC: BRITTANI
== END 2016-08-11 15:30 | DRG 280 ==
LOC: EDBD 03:08 → EMR 03:50 → 2E 04:03 → EDBEDREQ 16:05 → ICU 08-07 02:57 → 2W 08-08 23:00
DX: I21.4 Non-ST elevation (NSTEMI) myocardial infarction (principal); I50.23 Acute on chronic systolic (congestive) heart failure; I47.2 Ventricular tachycardia; N18.4 Chronic kidney disease, stage 4 (severe); N17.9 Acute kidney failure, unspecified; I95.9 Hypotension, unspecified; E44.1 Mild protein-calorie malnutrition; I42.0 Dilated cardiomyopathy; D69.6 Thrombocytopenia, unspecified; I25.5 Ischemic cardiomyopathy; I25.10 Atherosclerotic heart disease of native coronary artery without angina pectoris; Z95.810 Presence of automatic (implantable) cardiac defibrillator; N18.9 Chronic kidney disease, unspecified; I49.8 Other specified cardiac arrhythmias; R74.0 Nonspecific elevation of levels of transaminase and lactic acid dehydrogenase [LDH]; I48.0 Paroxysmal atrial fibrillation; Z95.1 Presence of aortocoronary bypass graft; D63.1 Anemia in chronic kidney disease; E78.5 Hyperlipidemia, unspecified
CPT/HCPCS: 36415; 71010; 76775; 80053; 80061; 81003; 82533; 82550; 82553; 82607; 82728; 82746; 82977; 83036; 83735; 83880; 84100; 84443; 84484; 84550; 85007; 85025; 85610; 85730; 86140; 87086; 93005; 93306; J8499